=== PATIENT | female | born 1955 | race African-American/Black ===

== ENCOUNTER 2016-10-21 06:22 | Inpatient (IN) | payer BC ==
[~2016-10-21] VITALS: Ht 165.1 cm; Wt 117.4 kg
[~2016-10-21 06:22] MED LIST: PANT40TA3 PO; SCOP1PAT2 T-DERMAL
[2016-10-21 06:25] VITALS: BP 157/88; PULSE 78; RESP 20; TEMP 97.5; O2SAT 99
[2016-10-21] MEDS ORDERED: SODIUM CHLOR 0.9% 1000 ML INJ 1,000 ML IV SCH (07:11)
[2016-10-21] MEDS ORDERED: PANTOPRAZOLE SODIUM 40 MG VIAL IVP ONE (07:15)
[2016-10-21] MEDS ORDERED: HYDROmorphone HCL PF 1 MG/ML VIAL IVS ONE (07:15)
[2016-10-21] MEDS ORDERED: ONDANSETRON HCL 4 MG/2 ML VIAL IVP ONE (07:15)
--- NOTE | 2016-10-21 07:26 | PD ---
HPI Chief Complaint: GI Complaint Time Seen by Provider: 06:59 Travel History International Travel<30 days: No Contact w/Intl Traveler<30days: No Traveled to known affect area: No History of Present Illness HPI 61-year-old female complains of abdominal pain with nausea vomiting diarrhea. Patient status post cholecystectomy and laparoscopic Donna-en-Y gastric bypass by Dr. Dumont October 10, 2016. Patient has been doing well postop. Patient started having abdominal pain with nausea vomiting diarrhea 2 days ago. Patient states the pain is severe pain cramping pain and sharp pain started around epigastric area with radiation to the back. Patient denies any fever chills. Patient denies any blood or mucus in the vomitus or stool. Patient denies any urinary or frequency. Patient denies any vaginal discharge or bleeding. On a scale of 1-10 the pain is a 10. PFSH Past Medical History Arthritis: Yes Cancer: No Cardiovascular Problems: No Diabetes: No Diminished Hearing: No Endocrine: No Gastrointestinal Disorders: Yes (reflux) GERD: Yes Genitourinary: No Hepatitis: No Hiatal Hernia: Yes Hypertension: Yes Immune Disorder: No Musculoskeletal: Yes (arthritis) Neurologic: Yes (hx of migraines) Psychiatric: No Reproductive: No Respiratory: No Migraines: Yes Thyroid Disease: No Menopausal: Yes Past Surgical History Abdominal Surgery: Yes (hemorroidectomy, gastric sleeve) AICD: No Cardiac Surgery: No Section: Yes (1979 & 1982) Endocrine Surgery: No Eye Surgery: No Genitourinary Surgery: No Gynecologic Surgery: Yes (x2 hysterectomy) Hysterectomy: Yes Joint Replacement: No Oral Surgery: No Pacemaker: No Thoracic Surgery: Yes (bronchoscopy) Tonsillectomy: Yes Other Surgery: Yes (HEMORRHOIDECTOMY, THROAT BIOPSY) Social History Alcohol Use: No Tobacco Use: No (QUIT 2003) Substance Use: No Allergies-Medications (Allergen,Severity, Reaction): Coded Allergies: Morphine (Verified Allergy, Severe, HIVES, 10/21/16) Percocet (Verified Adverse Reaction, Severe, NAUSEA, 10/21/16) Chlorhexidine (Verified Adverse Reaction, Intermediate, redness and itching, 10/21/16) PATIENT USED 2% CHLORHEXIDINE GLUCONATE CLOTHS TO WASH PRE-OP AND DEVELOPED ITCHING AND REDNESS Reported Meds & Prescriptions Reported Meds & Active Scripts Active Scopolamine Patch 72 HR (Scopolamine) 1 Mg Patch 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 SKIN: Warm and dry. HEAD: Normocephalic. EYES: No scleral icterus. No injection or drainage. NECK: Supple, trachea midline. No JVD or lymphadenopathy. CARDIOVASCULAR: Regular rate and rhythm without murmurs, gallops, or rubs. RESPIRATORY: Breath sounds equal bilaterally. No accessory muscle use. GASTROINTESTINAL: Abdomen soft, mildly distended. Active bowel sounds. Patient has moderate to severe tenderness on palpation epigastric area. No rebound tenderness. No mass. MUSCULOSKELETAL: No cyanosis, or edema. BACK: Nontender without obvious deformity. No CVA tenderness. Neurologic exam normal. Data Data Last Documented VS Vital Signs Date Time Temp Pulse Resp B/P Pulse Ox O2 Delivery O2 Flow Rate FiO2 10/21/16 06:25 97.5 78 20 157/88 99 Room Air Orders Complete Blood Count With Diff (10/21/16 07:11) Comprehensive Metabolic Panel (10/21/16 07:11) Lipase (10/21/16 07:11) Prothrombin Time / Inr (Pt) (10/21/16 07:11) Act Partial Throm Time (Ptt) (10/21/16 07:11) Urinalysis - C+S If Indicated (10/21/16 07:11) Ct Abd/Pel W Iv Contrast(Rout) (10/21/16 07:11) Iv Access Insert/Monitor (10/21/16 07:11) Ecg Monitoring (10/21/16 07:11) Oximetry (10/21/16 07:11) Ondansetron Inj (Zofran Inj) (10/21/16 07:15) Pantoprazole Inj (Protonix Inj) (10/21/16 07:15) Sodium Chlor 0.9% 1000 Ml Inj (Ns 1000 M (10/21/16 07:11) Electrocardiogram (10/21/16 07:11) Chest, Single Ap (10/21/16 07:11) Hydromorphone Pf Inj (Dilaudid Pf Inj) (10/21/16 07:15) Iohexol 350 Inj (Omnipaque 350 Inj) (10/21/16 08:19) Labs Laboratory Tests Test 10/21/16 07:10 White Blood Count 6.0 TH/MM3 Red Blood Count 4.48 MIL/MM3 Hemoglobin 13.6 GM/DL Hematocrit 39.2 % Mean Corpuscular Volume 87.6 FL Mean Corpuscular Hemoglobin 30.3 PG Mean Corpuscular Hemoglobin 34.6 % Concent Red Cell Distribution Width 14.4 % Platelet Count 229 TH/MM3 Mean Platelet Volume 8.6 FL Neutrophils (%) (Auto) 77.9 % Lymphocytes (%) (Auto) 16.1 % Monocytes (%) (Auto) 4.9 % Eosinophils (%) (Auto) 0.6 % Basophils (%) (Auto) 0.5 % Neutrophils # (Auto) 4.7 TH/MM3 Lymphocytes # (Auto) 1.0 TH/MM3 Monocytes # (Auto) 0.3 TH/MM3 Eosinophils # (Auto) 0.0 TH/MM3 Basophils # (Auto) 0.0 TH/MM3 CBC Comment DIFF FINAL Differential Comment Prothrombin Time 11.1 SEC Prothromb Time International 1.0 RATIO Ratio Activated Partial 27.5 SEC Thromboplast Time Sodium Level 141 MEQ/L Potassium Level 3.7 MEQ/L Chloride Level 104 MEQ/L Carbon Dioxide Level 23.4 MEQ/L Anion Gap 14 MEQ/L Blood Urea Nitrogen 9 MG/DL Creatinine 0.58 MG/DL Estimat Glomerular Filtration 128 ML/MIN Rate Random Glucose 99 MG/DL Calcium Level 9.6 MG/DL Total Bilirubin 0.5 MG/DL Aspartate Amino Transf 15 U/L (AST/SGOT) Alanine Aminotransferase 16 U/L (ALT/SGPT) Alkaline Phosphatase 52 U/L Total Protein 7.9 GM/DL Albumin 4.0 GM/DL Lipase 99 U/L MDM Medical Decision Making Medical Screen Exam Complete: Yes Emergency Medical Condition: Yes Interpretation(s) Last Impressions Chest X-Ray 1/9/17 0711 Signed Impressions: Service Date/Time: Friday, October 21, 2016 07:42 - CONCLUSION: Hazy opacity at the right lung base could represent atelectasis or mild air space consolidation. Darci Mcgregor MD Abdomen/Pelvis CT 10/21/16710 Signed Impressions: Service Date/Time: Friday, October 21, 2016 08:13 - CONCLUSION: Postsurgical changes noted along the inner curvature of the stomach with what appears to be a gastrojejunostomy. Dilated proximal small bowel loops with evidence of acute caliber transition at a second set of postsurgical stephanie in the proximal to mid jejunum. Findings a characteristic of a partial proximal small bowel obstruction likely due to adhesions. Status post cholecystectomy. Trace fluid in the pelvis. No other acute abnormalities Prabhu Antoine MD 8:51 AM. CBC within normal limit. WBC 6.0. 77 neutrophil. CMP within normal limit. Differential Diagnosis Differential diagnosis including gastritis, PUD, pancreatitis, colitis, UTI, pyelonephritis, nephrolithiasis, bowel obstruction. Narrative Course 61-year-old female with epigastric abdominal pain, nausea vomiting diarrhea. Status post cholecystectomy 11 days ago. Normal saline solution 1 25 cc an hour. Dilaudid 1 mg IV. Zofran 4 mg IV. Protonix 40 mg IV. NG tube inserted Diagnosis Primary Impression: Small bowel obstruction Admitting Information Admitting Physician Requests: Admit Jos Tapia MD Oct 21, 2016 07:25 Jos Tapia MD Oct 21, 2016 07:25
[2016-10-21 07:33] LABS: AUTOMATED NEUTROPHIL # 4.7 TH/MM3 (1.8-7.7); BASOPHIL % 0.5 % (0.0-2.0); EOSINOPHIL % 0.6 % (0.0-4.0); HEMATOCRIT 39.2 % (35.0-46.0); HEMO FLAGS DIFF FINAL; LYMPH % 16.1 % (9.0-44.0); MEAN CELL VOLUME 87.6 FL (80.0-100.0); MEAN CORPUSCULAR HEMOGLOBIN 30.3 PG (27.0-34.0); MEAN CORPUSCULAR HGB CONC 34.6 % (32.0-36.0); MONO % 4.9 % (0.0-8.0); NEUT % 77.9 % (16.0-70.0); PLATELET COUNT 229 TH/MM3 (150-450); RED BLOOD COUNT 4.48 MIL/MM3 (4.00-5.30); RED CELL DISTRIBUTION WIDTH 14.4 % (11.6-17.2)
[2016-10-21 07:42] LABS: APTT (PATIENT) 27.5 SEC (24.3-30.1); PROTHROMBIN TIME - PATIENT 11.1 SEC (9.8-11.6)
[2016-10-21 07:50] LABS: ALT (GPT) 16 U/L (10-53); ANION GAP 14 MEQ/L (5-15); AST (GOT) 15 U/L (15-37); BICARBONATE 23.4 MEQ/L (21.0-32.0); BLOOD UREA NITROGEN 9 MG/DL (7-18); CHLORIDE 104 MEQ/L (98-107); GLOMERULAR FILTRATION RATE 128 ML/MIN (>89); POTASSIUM 3.7 MEQ/L (3.5-5.1); SODIUM (NA) 141 MEQ/L (136-145)
[2016-10-21 07:53] LABS: ALKALINE PHOSPHATASE 52 U/L (45-117); TOTAL BILIRUBIN ADULT 0.5 MG/DL (0.2-1.0)
--- NOTE | 2016-10-21 08:03 | RADRPT ---
EXAM DATE/TIME: 10/21/2016 07:42 [facility] COMPARISON: No previous studies available for comparison. INDICATIONS : Left upper abdomen pains, radiating into chest. MEDICAL HISTORY : None. SURGICAL HISTORY : None. ENCOUNTER: Initial ACUITY: 2 days PAIN SCORE: 10/10 LOCATION: Left chest FINDINGS: Portable AP view of the chest demonstrates a normal-sized cardiac silhouette. Lungs are mildly underi nflated and in hazy opacity at the right lung base. No effusion or pneumothorax is visualized. Bones and soft tissues demonstrate no acute finding. CONCLUSION: Hazy opacity at the right lung base could represent atelectasis or mild air space consolidation. Darci Mcgregor MD on October 21, 2016 at 8:01 Board Certified Radiologist. This report was verified electronically.
[2016-10-21] MEDS ORDERED: IOHEXOL 350 MG/ML 10 ML VIAL (for RAD DIAG) IV ONE (08:19)
--- NOTE | 2016-10-21 08:39 | RADRPT ---
EXAM DATE/TIME: 10/21/2016 08:13 [facility] COMPARISON: No previous studies available for comparison. INDICATIONS : Patient complains of epigastric pain and vomiting IV CONTRAST: 90 cc Omnipaque 350 (iohexol) IV ORAL CONTRAST: No oral contrast ingested. RADIATION DOSE: 16.03 CTDIvol (mGy) MEDICAL HISTORY : Hypertension. Hernia, hiatal. SURGICAL HISTORY : Hemorrhoidectomy. Hysterectomy. ENCOUNTER: Initial ACUITY: 4 - 6 days PAIN SCALE: 10/10 LOCATION: upper quadrant TECHNIQUE: Volumetric scanning of the abdomen and pelvis was performed. Using automated exposure control and ad justment of the mA and/or kV according to patient size, radiation dose was kept as low as reasonably achievable to obtain optimal diagnostic quality images. FINDINGS: LOWER LUNGS: The visualized lower lungs are clear. LIVER: Homogeneous density without lesion. There is no dilation of the biliary tree. Gallbladder has been r emoved SPLEEN: Normal size without lesion. PANCREAS: Within normal limits. KIDNEYS: Normal in size and shape. There is no mass, stone or hydronephrosis. ADRENAL GLANDS: Within normal limits. VASCULAR: There is no aortic aneurysm. BOWEL/MESENTERY: Postsurgical changes are identified along the gastric wall. There are adjacent dilated small intestin al loops. A transition is identified in the mid left abdomen where a second set of anastomotic suture s are noted. The small intestinal tract this is normal in caliber. Stool and gas are seen in the colo n. There are no extraintestinal fluid collections or evidence of free air. Trace free fluid is identi fied in the pelvis. ABDOMINAL WALL: Within normal limits. RETROPERITONEUM: There is no lymphadenopathy. BLADDER: No wall thickening or mass. REPRODUCTIVE: Within normal limits. INGUINAL: There is no lymphadenopathy or hernia. MUSCULOSKELETAL: Facet arthropathy is noted in lower lumbar spine. CONCLUSION: Postsurgical changes noted along the inner curvature of the stomach with what appears to be a gastroj ejunostomy. Dilated proximal small bowel loops with evidence of acute caliber transition at a second set of posts urgical stephanie in the proximal to mid jejunum. Findings a characteristic of a partial proximal small bowel obstruction likely due to adhesions. Status post cholecystectomy. Trace fluid in the pelvis. No other acute abnormalities Prabhu Antoine MD on October 21, 2016 at 8:29 Board Certified Radiologist. This report was verified electronically.
[2016-10-21 08:50] VITALS: BP 144/85; PULSE 72; RESP 17; O2SAT 96
[2016-10-21] MEDS ORDERED: ONDANSETRON HCL 4 MG/2 ML VIAL IV PUSH ONE (09:07)
[2016-10-21] MEDS ORDERED: PHENYLEPH/NS 1000 MCG/10 ML SYR IV ONE (09:07)
[2016-10-21] MEDS ORDERED: NEOSTIGMINE METHYLSULFATE 10 MG/10 ML VIAL IV PUSH ONE (09:07)
[2016-10-21] MEDS ORDERED: LACTATED RINGER'S 1000 ML INJ 1,000 ML IV ONE (09:07)
[2016-10-21] MEDS ORDERED: ePHEDrine/NS 50 MG/5 ML SYR IV ONE (09:07)
[2016-10-21] MEDS ORDERED: PROPOFOL 200 MG/20 ML AMP IV ONE (09:07)
[2016-10-21] MEDS ORDERED: PIPERACIL-TAZO 3.375 GM PREMIX 50 ML IV ONE (09:15)
[2016-10-21] MEDS ORDERED: ACETAMINOPHEN 325 MG TAB PO PRN (09:15)
[2016-10-21] MEDS ORDERED: SODIUM CHLORIDE 0.9% FLUSH 5 ML FLUSH IVF PRN ×3 (09:15→13:45)
[2016-10-21] MEDS ORDERED: ONDANSETRON HCL 4 MG/2 ML VIAL IV PRN ×2 (09:15→13:45)
[2016-10-21 09:21] VITALS: O2SAT 99
[2016-10-21 09:27] LABS: BACTERIA, URINE OCC /hpf; BLOOD, URINE NEG (NEG); GLUCOSE,URINE NEG (NEG); KETONE, URINE 150 mg/dL (NEG); MUCUS URINE FEW /lpf (OCC); NITRITE,URINE NEG (NEG); PH, URINE 5.5 (5.0-8.5); SQUAMOUS EPITHELIAL CELL URINE 2 /hpf (0-5); URINE COLOR YELLOW (YELLW/STRAW)
[2016-10-21 09:28] LABS: COMMENT (UR) CULT NOT INDICATED; CULTURE IF INDICATED CULT NOT INDICATED
[2016-10-21] MEDS ORDERED: MIDAZOLAM HCL 2 MG/2 ML VIAL ONE (10:41)
--- NOTE | 2016-10-21 11:03 | EKG ---
Date Performed: 10/21/2016 Time Performed: 07:39:10 PTAGE: 61 years EKG: Sinus rhythm NORMAL ECG PREVIOUS TRACING : 01/05/2008 08.16 No significant change from previous tracing noted. DOCTOR: Gigi Delaney Interpretating Date/Time 10/21/2016 11:02:27
[2016-10-21] MEDS ORDERED: BUPIVACAINE/EPINEPHRINE 0.25% 50 ML VIAL INFIL ONE (11:22)
[2016-10-21] MEDS ORDERED: MORPHINE SULFATE 30 MG/30 ML PCA IV SCH (13:45)
[2016-10-21] MEDS ORDERED: diphenhydrAMINE HCL 25 MG CAP PO PRN (13:45)
[2016-10-21] MEDS ORDERED: Post-op Orders (for Pharmacy) MISC XX ONE ×2 (13:45)
[2016-10-21] MEDS ORDERED: NALOXONE HCL 0.4 MG/ML AMP IV PRN (13:45)
[2016-10-21] MEDS ORDERED: PCA - TOTAL MG MORPHINE DELIVERED PER SHIFT SCH (14:00)
[2016-10-21] MEDS ORDERED: DO NOT ADM ANY ANTICOAGULANT DRUGS XX PRN (14:02)
[2016-10-21] MEDS ORDERED: fentaNYL CITRATE 250 MCG/5 ML AMP ONE (14:16)
[2016-10-21] MEDS ORDERED: *HYDROmorphone PF 1 MG VIAL PERIprocedural Use ONLY ONE ×2 (14:28→14:48)
[2016-10-21] MEDS: SODIUM CHLOR 0.9% 1000 ML INJ 1,000 ML IV SCH (16:00)
[2016-10-21] MEDS ORDERED: HYDROmorphone HCL PCA 6 MG/30 ML IV ONE (16:40)
[2016-10-21] MEDS ORDERED: HYDROmorphone HCL PCA 6 MG/30 ML IV SCH (16:45)
[2016-10-21 18:00] VITALS: BP 110/59; PULSE 85; RESP 18; TEMP 97.9; O2SAT 99
[2016-10-21 20:00] VITALS: BP 134/69; PULSE 74; RESP 18; TEMP 96.9; O2SAT 100
[2016-10-21] MEDS ORDERED: SODIUM CHLORIDE 0.9% FLUSH 5 ML FLUSH IVF SCH ×2 (21:00)
[2016-10-21] MEDS: SODIUM CHLORIDE 0.9% FLUSH 5 ML FLUSH IVF SCH (21:00)
[2016-10-21] MEDS: SCOPOLAMINE 1.5 MG PATCH TD SCH (21:37)
[2016-10-21] MEDS: PCA - TOTAL MG DILAUDID DELIVERED PER SHIFT SCH (21:39)
[2016-10-22] VITALS (8 sets, daily range): BP systolic 119–145; BP diastolic 66–78; PULSE 58–78; RESP 17–19; TEMP 97.3–97.9; O2SAT 96–100
[2016-10-22] MEDS: PIPERACIL-TAZO 3.375 GM PREMIX 50 ML IV SCH ×3 (00:19→16:56)
[2016-10-22] MEDS: SODIUM CHLOR 0.9% 1000 ML INJ 1,000 ML IV SCH ×3 (00:19→22:03)
[2016-10-22 05:38] LABS: AUTOMATED NEUTROPHIL # 4.2 TH/MM3 (1.8-7.7); BASOPHIL % 0.2 % (0.0-2.0); EOSINOPHIL % 0.1 % (0.0-4.0); HEMATOCRIT 33.6 % (35.0-46.0); HEMO FLAGS DIFF FINAL; LYMPH % 17.6 % (9.0-44.0); MEAN CELL VOLUME 89.2 FL (80.0-100.0); MEAN CORPUSCULAR HEMOGLOBIN 29.5 PG (27.0-34.0); MEAN CORPUSCULAR HGB CONC 33.1 % (32.0-36.0); MONO % 8.6 % (0.0-8.0); NEUT % 73.5 % (16.0-70.0); PLATELET COUNT 217 TH/MM3 (150-450); RED BLOOD COUNT 3.76 MIL/MM3 (4.00-5.30); RED CELL DISTRIBUTION WIDTH 14.6 % (11.6-17.2); WHITE BLOOD COUNT 5.8 TH/MM3 (4.0-11.0)
[2016-10-22] MEDS: PCA - TOTAL MG DILAUDID DELIVERED PER SHIFT SCH ×3 (05:44→22:00)
[2016-10-22] MEDS: SODIUM CHLORIDE 0.9% FLUSH 5 ML FLUSH IVF SCH ×2 (08:22→21:00)
[2016-10-22] MEDS: ENOXAPARIN SODIUM 40 MG/0.4 ML SYRINGE SQ SCH (11:40)
--- NOTE | 2016-10-22 16:36 | HHI.PR ---
Subjective Subjective Notes pt comfortable pain controlled no flatus Objective Vitals/I&O Vital Signs Date Time Temp Pulse Resp B/P Pulse Ox O2 Delivery O2 Flow Rate FiO2 10/22/16 14:00 22 10/22/16 11:41 97.3 58 121/68 100 10/22/16 08:10 Nasal Cannula 10/22/16 01:59 1.00 10/21/16 09:21 21 Labs Laboratory Tests Test 10/22/16 05:04 White Blood Count 5.8 Red Blood Count 3.76 Hemoglobin 11.1 Hematocrit 33.6 Mean Corpuscular Volume 89.2 Mean Corpuscular Hemoglobin 29.5 Mean Corpuscular Hemoglobin 33.1 Concent Red Cell Distribution Width 14.6 Platelet Count 217 Mean Platelet Volume 8.5 Neutrophils (%) (Auto) 73.5 Lymphocytes (%) (Auto) 17.6 Monocytes (%) (Auto) 8.6 Eosinophils (%) (Auto) 0.1 Basophils (%) (Auto) 0.2 Neutrophils # (Auto) 4.2 Lymphocytes # (Auto) 1.0 Monocytes # (Auto) 0.5 Eosinophils # (Auto) 0.0 Basophils # (Auto) 0.0 CBC Comment DIFF FINAL Differential Comment Abdomen: Post-op tenderness Extremities: Perfused Wound Wound : Wound Location: Abdomen Appearance: Clean & Dry A/P Assessment and Plan S/P Lap SARA for SBO normal post op changes OOB ok for ice chips Osito Dumont MD Oct 22, 2016 16:36
[2016-10-23] VITALS: BP 143/78; PULSE 68; RESP 17; TEMP 97.8; O2SAT 97
[2016-10-23] MEDS: PIPERACIL-TAZO 3.375 GM PREMIX 50 ML IV SCH ×3 (01:20→15:38)
[2016-10-23 04:44] LABS: AUTOMATED NEUTROPHIL # 3.1 TH/MM3 (1.8-7.7); BASOPHIL % 0.4 % (0.0-2.0); EOSINOPHIL # 0.1 TH/MM3 (0-0.4); EOSINOPHIL % 2.3 % (0.0-4.0); HEMATOCRIT 36.4 % (35.0-46.0); HEMO FLAGS DIFF FINAL; LYMPH % 36.9 % (9.0-44.0); LYMPHOCYTE # 2.2 TH/MM3 (1.0-4.8); MEAN CELL VOLUME 89.2 FL (80.0-100.0); MEAN CORPUSCULAR HEMOGLOBIN 29.3 PG (27.0-34.0); MEAN CORPUSCULAR HGB CONC 32.8 % (32.0-36.0); MONO % 10.1 % (0.0-8.0); NEUT % 50.3 % (16.0-70.0); PLATELET COUNT 218 TH/MM3 (150-450); RED BLOOD COUNT 4.08 MIL/MM3 (4.00-5.30); RED CELL DISTRIBUTION WIDTH 14.7 % (11.6-17.2); WHITE BLOOD COUNT 6.1 TH/MM3 (4.0-11.0)
[2016-10-23 05:12] LABS: BICARBONATE 27.4 MEQ/L (21.0-32.0); MAGNESIUM 1.9 MG/DL (1.5-2.5); POTASSIUM 3.7 MEQ/L (3.5-5.1)
[2016-10-23] MEDS: SODIUM CHLOR 0.9% 1000 ML INJ 1,000 ML IV SCH ×2 (05:57→15:39)
[2016-10-23] MEDS: PCA - TOTAL MG DILAUDID DELIVERED PER SHIFT SCH ×3 (06:00→22:00)
[2016-10-23 08:00] VITALS: BP 133/75; PULSE 75; RESP 17; TEMP 97.2; O2SAT 97
[2016-10-23] MEDS: SODIUM CHLORIDE 0.9% FLUSH 5 ML FLUSH IVF SCH ×2 (09:00→21:00)
[2016-10-23] MEDS: ENOXAPARIN SODIUM 40 MG/0.4 ML SYRINGE SQ SCH (13:00)
[2016-10-23 20:00] VITALS: BP 136/78; PULSE 69; RESP 20; TEMP 97.1; O2SAT 100
[2016-10-24] VITALS: BP 139/73; PULSE 65; RESP 20; TEMP 97.4; O2SAT 99
[2016-10-24] MEDS: PIPERACIL-TAZO 3.375 GM PREMIX 50 ML IV SCH ×4 (00:39→23:43)
[2016-10-24] MEDS: SODIUM CHLOR 0.9% 1000 ML INJ 1,000 ML IV SCH ×2 (03:53→08:12)
[2016-10-24 04:00] VITALS: BP 154/74; PULSE 64; RESP 20; TEMP 96.3; O2SAT 95
[2016-10-24] MEDS: PCA - TOTAL MG DILAUDID DELIVERED PER SHIFT SCH (06:00)
[2016-10-24 08:00] VITALS: BP 148/68; PULSE 66; RESP 17; TEMP 97.4; O2SAT 95
[2016-10-24] MEDS: SODIUM CHLORIDE 0.9% FLUSH 5 ML FLUSH IVF SCH ×2 (08:13→21:00)
[2016-10-24 12:00] VITALS: BP 151/72; PULSE 68; RESP 17; TEMP 96.6; O2SAT 95
[2016-10-24] MEDS: ENOXAPARIN SODIUM 40 MG/0.4 ML SYRINGE SQ SCH (13:17)
[2016-10-24] MEDS: SCOPOLAMINE 1.5 MG PATCH TD SCH (13:41)
[2016-10-24] MEDS ORDERED: REMOVE OLD SCOPOLAMINE PATCH T-DERMAL SCH (15:00)
[2016-10-24] MEDS: ACETAMINOPHEN 325MG/HYDROcodone 7.5MG/15ML UDC PO PRN (17:33)
[2016-10-24 20:00] VITALS: BP 146/70; PULSE 66; RESP 20; TEMP 97.2; O2SAT 99
[2016-10-25] VITALS: BP 145/74; PULSE 65; RESP 20; TEMP 97.1; O2SAT 97
[2016-10-25 05:03] LABS: AUTOMATED NEUTROPHIL # 2.4 TH/MM3 (1.8-7.7); BASOPHIL % 0.6 % (0.0-2.0); EOSINOPHIL # 0.2 TH/MM3 (0-0.4); EOSINOPHIL % 4.4 % (0.0-4.0); HEMATOCRIT 32.5 % (35.0-46.0); HEMO FLAGS DIFF FINAL; LYMPH % 38.2 % (9.0-44.0); LYMPHOCYTE # 1.9 TH/MM3 (1.0-4.8); MEAN CELL VOLUME 89.1 FL (80.0-100.0); MEAN CORPUSCULAR HEMOGLOBIN 29.7 PG (27.0-34.0); MEAN CORPUSCULAR HGB CONC 33.3 % (32.0-36.0); MONO % 8.2 % (0.0-8.0); NEUT % 48.6 % (16.0-70.0); PLATELET COUNT 198 TH/MM3 (150-450); RED BLOOD COUNT 3.64 MIL/MM3 (4.00-5.30); RED CELL DISTRIBUTION WIDTH 14.6 % (11.6-17.2)
[2016-10-25 05:19] LABS: BICARBONATE 28.1 MEQ/L (21.0-32.0); MAGNESIUM 1.8 MG/DL (1.5-2.5); POTASSIUM 3.4 MEQ/L (3.5-5.1)
[2016-10-25 08:00] VITALS: BP 146/81; PULSE 67; RESP 16; TEMP 97.7; O2SAT 98
[2016-10-25] MEDS: SODIUM CHLOR 0.9% 1000 ML INJ 1,000 ML IV SCH (08:54)
[2016-10-25] MEDS: PIPERACIL-TAZO 3.375 GM PREMIX 50 ML IV SCH ×3 (08:54→23:59)
[2016-10-25] MEDS: PANTOPRAZOLE SODIUM 40 MG VIAL IV PUSH SCH (08:55)
[2016-10-25] MEDS: SODIUM CHLORIDE 0.9% FLUSH 5 ML FLUSH IVF SCH ×2 (08:55→20:11)
[2016-10-25] MEDS: POTASSIUM CHLOR 20 MEQ PREMIX 100 ML IV SCH ×2 (10:00→17:32)
[2016-10-25 12:00] VITALS: BP 150/89; PULSE 68; RESP 17; TEMP 98; O2SAT 99
[2016-10-25] MEDS: ENOXAPARIN SODIUM 40 MG/0.4 ML SYRINGE SQ SCH (13:00)
[2016-10-25 15:48] VITALS: BP 148/88; PULSE 62; RESP 17; TEMP 97.7; O2SAT 100
--- NOTE | 2016-10-25 17:22 | HHI.PR ---
Subjective Subjective Notes pt comfortable pos flatus BM yesterday Objective Vitals/I&O Vital Signs Date Time Temp Pulse Resp B/P Pulse Ox O2 Delivery O2 Flow Rate FiO2 10/25/16 15:48 97.7 62 17 148/88 100 10/22/16 20:38 21 10/22/16 08:10 Nasal Cannula 10/22/16 01:59 1.00 Labs Laboratory Tests Test 10/25/16 04:26 White Blood Count 5.0 Red Blood Count 3.64 Hemoglobin 10.8 Hematocrit 32.5 Mean Corpuscular Volume 89.1 Mean Corpuscular Hemoglobin 29.7 Mean Corpuscular Hemoglobin 33.3 Concent Red Cell Distribution Width 14.6 Platelet Count 198 Mean Platelet Volume 8.9 Neutrophils (%) (Auto) 48.6 Lymphocytes (%) (Auto) 38.2 Monocytes (%) (Auto) 8.2 Eosinophils (%) (Auto) 4.4 Basophils (%) (Auto) 0.6 Neutrophils # (Auto) 2.4 Lymphocytes # (Auto) 1.9 Monocytes # (Auto) 0.4 Eosinophils # (Auto) 0.2 Basophils # (Auto) 0.0 CBC Comment DIFF FINAL Differential Comment Sodium Level 146 Potassium Level 3.4 Chloride Level 109 Carbon Dioxide Level 28.1 Anion Gap 9 Blood Urea Nitrogen 3 Creatinine 0.44 Estimat Glomerular Filtration 176 Rate Random Glucose 78 Calcium Level 8.6 Magnesium Level 1.8 Abdomen: Post-op tenderness Extremities: Perfused Wound Wound : Wound Location: Abdomen Appearance: Clean & Dry A/P Assessment and Plan S/P Lap SARA for SBO soft diet no bread potatoes pasta replace K if josé manuel diet d/c in am Osito Dumont MD Oct 25, 2016 17:22
[2016-10-25] MEDS: ACETAMINOPHEN 325MG/HYDROcodone 7.5MG/15ML UDC PO PRN (18:18)
[2016-10-25 20:00] VITALS: BP 150/77; PULSE 66; RESP 20; TEMP 97.6; O2SAT 97
[2016-10-26] VITALS: BP 123/69; PULSE 70; RESP 20; TEMP 97.4; O2SAT 96
[2016-10-26] MEDS: ACETAMINOPHEN 325MG/HYDROcodone 7.5MG/15ML UDC PO PRN (00:07)
[2016-10-26] MEDS: SODIUM CHLOR 0.9% 1000 ML INJ 1,000 ML IV SCH (05:00)
[2016-10-26 08:00] VITALS: BP 128/65; PULSE 70; RESP 18; TEMP 96.9; O2SAT 97
[2016-10-26] MEDS: PIPERACIL-TAZO 3.375 GM PREMIX 50 ML IV SCH (09:05)
[2016-10-26] MEDS: PANTOPRAZOLE SODIUM 40 MG VIAL IV PUSH SCH (09:06)
[2016-10-26] MEDS: SODIUM CHLORIDE 0.9% FLUSH 5 ML FLUSH IVF SCH (09:06)
[2016-10-26 12:00] VITALS: BP 142/78; PULSE 64; RESP 17; TEMP 98.2; O2SAT 99
[2016-10-26] MEDS: ENOXAPARIN SODIUM 40 MG/0.4 ML SYRINGE SQ SCH (12:51)
--- NOTE | 2016-10-26 15:30 | HHI.PR ---
Subjective Subjective Notes pt comfortable no cp no sob pos flatus Objective Vitals/I&O Vital Signs Date Time Temp Pulse Resp B/P Pulse Ox O2 Delivery O2 Flow Rate FiO2 10/26/16 12:00 98.2 64 17 142/78 99 10/22/16 20:38 21 10/22/16 08:10 Nasal Cannula Cardiovascular: Regular Abdomen: Post-op tenderness Extremities: Perfused Wound Wound : Wound Location: Abdomen Appearance: Clean & Dry A/P Assessment and Plan S/P Lap SARA for SBO if josé manuel diet d/c home Osito Dumont MD Oct 26, 2016 15:30
[2016-10-26] MEDS ORDERED: HYDR1ELX PO (15:31)
--- NOTE | 2016-10-27 17:05 | MH ---
cc: AFSANEH LEAHY DATE OF ADMISSION: 10/21/2016 REASON FOR ADMISSION: Bowel obstruction. HISTORY OF PRESENT ILLNESS: This is 61-year-old patient who underwent Donna-en-Y gastric bypass on October 10, 2016. She doing well until three days prior to presentation when she began experiencing abdominal pain and inability to tolerate meals. As this persisted, she presented to the emergency room where a CT scan revealed findings concerning for bowel obstruction. The patient denies fevers or chills. She states she is passing a small amount of gas and has had diarrhea. PAST MEDICAL HISTORY: Her medical history significant for above as well as: 1. Migraines. 2. Gastroesophageal reflux. 3. Osteoarthritis. PAST SURGICAL HISTORY: Significant for above as well as: 1. Hysterectomy. 2. section. 3. Cholecystectomy. MEDICATIONS: Medications at home that include: Scopolamine and pantoprazole. SOCIAL HISTORY: She does not smoke or drink alcohol. ALLERGIES: 1. MORPHINE. 2. PERCOCET. 3. CHLORHEXIDINE. FAMILY HISTORY: Noncontributory. REVIEW OF SYSTEMS: Review of systems significant for above. All other 10-point review negative. PHYSICAL EXAMINATION: GENERAL: On exam the patient is laying on a stretcher in no acute distress. HEAD, EYES, EARS, NOSE, THROAT: Pupils are equal and reactive. NECK: Trachea is midline without JVD. LUNGS: Respirations clear. CARDIOVASCULAR: Regular. GASTROINTESTINAL: Soft, positive tenderness, moderate distension. MUSCULOSKELETAL: No deformities. NEUROLOGICAL: Nonfocal. LABORATORY STUDIES: White count 6, neutrophils of 78. ASSESSMENT: This is a patient with a bowel obstruction. PLAN: The plan is to take her to the operating room for laparoscopy with lysis of adhesions and possible bowel resection. Risks and benefits explained to the patient, technical aspects explained as well as nery- and postoperative course. The patient verbalized understanding. Consent was obtained. MD PHYLLIS Hoover/GUNNAR /4:19 PM /4:59 PM
--- NOTE | 2016-10-30 17:57 | MP ---
cc: AFSANEH DUMONT DATE OF SURGERY: 10/21/2016 DATE OF : 1955 PREOPERATIVE DIAGNOSIS Bowel obstruction. POSTOPERATIVE DIAGNOSIS Bowel obstruction. PROCEDURE Laparoscopic lysis of adhesions. SURGEON Afsaneh Dumont MD ANESTHESIA General endotracheal anesthesia. ESTIMATED BLOOD LOSS Scant. FINDINGS The patient was noted to have dense adhesions just proximal to her jejunojejunostomy and dilation of her Donna limb proximal to this. Distal to her jejunojejunostomy, the patient had adhesions in her left lower quadrant. She also had adhesions on the small bowel further distally to the abdominal wall and the pelvis. SPECIMENS None. COMPLICATIONS None. OPERATION The patient was brought to the operating room and placed on the operating table in supine position. Bilateral sequential inflation device placed on lower extremities. General anesthesia instituted. Araujo catheter placed. Antibiotics initiated. The abdomen was prepped and draped sterilely. The periumbilical region anesthetized with 0.25% percent Marcaine with epinephrine. A skin incision was made, a 5 mm OptiView port placed under direct vision and pneumoperitoneum created. Under direct vision a 5 mm left upper quadrant, a 5 mm right upper quadrant and a 12 mm left upper quadrant port was placed. Prior to placement of all ports, the skin and peritoneum anesthetized with 0.25% percent Marcaine with epinephrine. The abdominal cavity was inspected. Findings as above. Attention first focused at the jejunostomy. The dense adhesions kinked in the small bowel in this region were using blunt and sharp dissection. Serosal entry in the bowel in this region were made during the dissection, these were closed with 3-0 Vicryl sutures. Once the bowel was freed in this region, the proximal Donna limb was then plicated to the biliopancreatic limb with 2-0 silk sutures. Attention turned to the distal bowel just distal to the jejunojejunostomy and this bowel was sharply , care taken not to injure the small bowel during this dissection. It was decided to leave the deep pelvic adhesions intact for fear of risk of injury to the bowel. At this point, contents appeared to be passing through the jejunojejunostomy, the operation was terminated. Hemostasis was assured first. CO2 was released. All ports removed. All skin incisions closed with 4-0 Monocryl. The abdominal wall was cleaned and a sterile dressing placed. The patient was awakened and taken to the Recovery Room. MD PHYLLIS Hoover/TRICE /4:12 PM /5:22 PM
--- NOTE | 2016-11-14 12:34 | HHI.DS ---
Discharge Summary Admission Date Oct 21, 2016 at 09:06 Discharge Date: Oct 26, 2016 Admitting Diagnosis small bowel obstruction Brief History 61 year old female s/p Donna N Y procedure now with SBO. PE at Discharge Alert and awake Cardio: RRR Resp: CTAB Abd: incision c/d/i; post op tenderness Hospital Course 61 year old female S/P Lap SARA for SBO. The patient's pain was controlled. Her diet was advanced and she was karuna to tolerate it prior to DC. The patient was able to mobilize. The patient will follow up in the office. This DC summary was written by Analilia CRUZ acting as scribe for Philip Paul MD Pt Condition on Discharge: Good Discharge Disposition: Discharge Home Discharge Instructions DIET: Follow Instructions for: Soft Diet Activities you can perform: Shower Only-No Bath Quin Gonzalez Nov 14, 2016 12:33
== END 2016-10-26 16:53 | disposition home or self-care (01) | DRG 337 ==
LOC: NEPE 06:22 → NEDA 09:06 → N07B 17:59
PROVIDERS: ADMIT Surgery; ATTEND Surgery
PROC: 0DNA4ZZ Release Jejunum, Percutaneous Endoscopic Approach (ICD-10-PCS; principal; 2016-10-21 10:46)
DX: K56.5 Intestinal adhesions [bands] with obstruction (postinfection) (principal); I10 Essential (primary) hypertension; K21.9 Gastro-esophageal reflux disease without esophagitis; M19.90 Unspecified osteoarthritis, unspecified site; Z87.891 Personal history of nicotine dependence; Z88.5 Allergy status to narcotic agent; Z98.84 Bariatric surgery status
CPT/HCPCS: 71010; 74177; 76937; 80048; 80053; 81001; 83690; 83735; 85025; 85610; 85730; 93005; 94150; 96361; 96374; 96375; C9113; J1170; J1650; J2250; J2370; J2405; J2543; J2710; J3010; J3480; J7030; J7120; Q9967

== ENCOUNTER 2016-11-17 12:07 | Emergency (ER) | payer BC ==
[~2016-11-17] VITALS: Ht 165.1 cm; Wt 104.1 kg
[~2016-11-17 12:07] MED LIST changes: +HYDR1ELX PO
[2016-11-17 12:10] VITALS: BP 148/85; PULSE 89; RESP 24; TEMP 97.7; O2SAT 100
[2016-11-17] MEDS ORDERED: SODIUM CHLOR 0.9% 1000 ML INJ 1,000 ML IV SCH (12:27)
[2016-11-17] MEDS ORDERED: FAMOTIDINE 20 MG/2 ML VIAL IV PUSH ONE (12:30)
[2016-11-17] MEDS ORDERED: ONDANSETRON HCL 4 MG/2 ML VIAL IVP ONE (12:30)
[2016-11-17] MEDS ORDERED: SODIUM CHLORIDE 0.9% FLUSH 5 ML FLUSH IVF PRN (12:30)
[2016-11-17] MEDS ORDERED: DIATRIZOATE MEGLUM/DIATRIZOATE SOD 9 ML CUP ONE (12:42)
--- NOTE | 2016-11-17 13:07 | PD ---
HPI Chief Complaint: GI Complaint Time Seen by Provider: 12:17 Travel History International Travel<30 days: No Contact w/Intl Traveler<30days: No Traveled to known affect area: No History of Present Illness HPI Patient is a 61-year-old female who presents to emergency room with complaints of nausea and vomiting since last night. Patient reports that she took a potassium pill last night, reports that after she ingested medication, she became nauseous and began vomiting. She reports that she has not been able to stop vomiting since last night. Patient denies any diarrhea or constipation. Patient denies any chest pain or shortness of breath. Patient reports that she is uncomfortable and cannot stop dry heaving. Reports that she was recently admitted to the hospital as she had a cholecystectomy followed by a small bowel obstruction. Reports that "I was just discharged from here." Denies fever/ chills. Denies any other c/o. PFSH Past Medical History Arthritis: Yes Cancer: No Cardiovascular Problems: No Diabetes: No Diminished Hearing: No Endocrine: No Gastrointestinal Disorders: Yes (reflux) GERD: Yes Genitourinary: No Hepatitis: No Hiatal Hernia: Yes Hypertension: Yes Immune Disorder: No Musculoskeletal: Yes (arthritis) Neurologic: Yes (hx of migraines) Psychiatric: No Reproductive: No Respiratory: No Migraines: Yes Thyroid Disease: No ?: Not Menopausal: Yes Past Surgical History Abdominal Surgery: Yes (hemorroidectomy, gastric sleeve) AICD: No Cardiac Surgery: No Section: Yes (1979 & 1982) Cholecystectomy: Yes Endocrine Surgery: No Eye Surgery: No Genitourinary Surgery: No Gynecologic Surgery: Yes (x2 hysterectomy) Hysterectomy: Yes Joint Replacement: No Oral Surgery: No Pacemaker: No Thoracic Surgery: Yes (bronchoscopy) Tonsillectomy: Yes Other Surgery: Yes (HEMORRHOIDECTOMY, THROAT BIOPSY) Social History Alcohol Use: No Tobacco Use: No (QUIT 2003) Substance Use: No Allergies-Medications (Allergen,Severity, Reaction): Coded Allergies: Morphine (Verified Allergy, Severe, HIVES, 11/17/16) Percocet (Verified Adverse Reaction, Severe, NAUSEA, 11/17/16) Chlorhexidine (Verified Adverse Reaction, Intermediate, redness and itching, 11/17/16) PATIENT USED 2% CHLORHEXIDINE GLUCONATE CLOTHS TO WASH PRE-OP AND DEVELOPED ITCHING AND REDNESS Reported Meds & Prescriptions Reported Meds & Active Scripts Active Zofran Odt (Ondansetron Odt) 4 Mg Tab 4 Mg SL Q6HR PRN Reported Pantoprazole (Pantoprazole Sodium) 40 Mg Tab 40 Mg PO DAILY Review of Systems General / Constitutional: No: Fever Eyes: No: Visual changes HENT: No: Headaches Cardiovascular: Positive: Diaphoresis, No: Chest Pain or Discomfort Respiratory: No: Shortness of Breath Gastrointestinal: Positive: Nausea, Vomiting, Abdominal Pain Genitourinary: No: Dysuria Musculoskeletal: No: Pain Skin: No Rash Neurologic: No: Weakness Psychiatric: No: Depression Endocrine: No: Polydipsia Hematologic/Lymphatic: No: Easy Bruising Physical Exam Narrative GENERAL: mild distress SKIN: Warm and dry. HEAD: Atraumatic. Normocephalic. EYES: Pupils equal and round. No scleral icterus. No injection or drainage. ENT: No nasal bleeding or discharge. Mucous membranes pink and moist. NECK: Trachea midline. No JVD. CARDIOVASCULAR: Regular rate and rhythm. No murmur appreciated. RESPIRATORY: No accessory muscle use. Clear to auscultation. Breath sounds equal bilaterally. GASTROINTESTINAL: Abdomen soft, tenderness to upper abdomen, no rebound or guarding on exam MUSCULOSKELETAL: No obvious deformities. No clubbing. No cyanosis. No edema. NEUROLOGICAL: Awake and alert. No obvious cranial nerve deficits. Motor grossly within normal limits. Normal speech. PSYCHIATRIC: Appropriate mood and affect; insight and judgment normal. Data Data Last Documented VS Vital Signs Date Time Temp Pulse Resp B/P Pulse Ox O2 Delivery O2 Flow Rate FiO2 11/17/16 12:10 97.7 89 24 148/85 100 Orders Complete Blood Count With Diff (11/17/16 12:27) Comprehensive Metabolic Panel (11/17/16 12:27) Lipase (11/17/16 12:27) Prothrombin Time / Inr (Pt) (11/17/16 12:27) Act Partial Throm Time (Ptt) (11/17/16 12:27) Urinalysis - C+S If Indicated (11/17/16 12:27) Ct Abd/Pel W Iv Contrast(Rout) (11/17/16 12:27) Iv Access Insert/Monitor (11/17/16 12:27) Ecg Monitoring (11/17/16 12:27) Oximetry (11/17/16 12:27) Ondansetron Inj (Zofran Inj) (11/17/16 12:30) Sodium Chlor 0.9% 1000 Ml Inj (Ns 1000 M (11/17/16 12:27) Sodium Chloride 0.9% Flush (Ns Flush) (11/17/16 12:30) Electrocardiogram (11/17/16 12:27) Chest, Single Ap (11/17/16 12:27) B-Type Natriuretic Peptide (11/17/16 12:27) Ckmb (Isoenzyme) Profile (11/17/16 12:27) Troponin I (11/17/16 12:27) Famotidine Inj (Pepcid Inj) (11/17/16 12:30) Oral Contrast - Adult (11/17/16 12:34) Diatrizoate Liq ( Gastroview Liq) (11/17/16 12:42) Potassium Cl 40 Meq/30 Ml Liq (Kcl 40 Me (11/17/16 14:15) Potassium Phosphate Inj (Potassium Phosp (11/17/16 14:15) Potassium Chlor 20 Meq Premix (Kcl 20 Me (11/17/16 14:15) Iohexol 350 Inj (Omnipaque 350 Inj) (11/17/16 14:48) Labs Laboratory Tests Test 11/17/16 11/17/16 12:55 14:32 White Blood Count 4.0 TH/MM3 Red Blood Count 4.36 MIL/MM3 Hemoglobin 12.9 GM/DL Hematocrit 38.5 % Mean Corpuscular Volume 88.2 FL Mean Corpuscular Hemoglobin 29.5 PG Mean Corpuscular Hemoglobin 33.5 % Concent Red Cell Distribution Width 15.2 % Platelet Count 160 TH/MM3 Mean Platelet Volume 9.9 FL Neutrophils (%) (Auto) 29.6 % Lymphocytes (%) (Auto) 59.5 % Monocytes (%) (Auto) 9.3 % Eosinophils (%) (Auto) 1.2 % Basophils (%) (Auto) 0.4 % Neutrophils # (Auto) 1.2 TH/MM3 Lymphocytes # (Auto) 2.4 TH/MM3 Monocytes # (Auto) 0.4 TH/MM3 Eosinophils # (Auto) 0.0 TH/MM3 Basophils # (Auto) 0.0 TH/MM3 CBC Comment DIFF FINAL Differential Comment Prothrombin Time 11.2 SEC Prothromb Time International 1.0 RATIO Ratio Activated Partial 26.1 SEC Thromboplast Time Sodium Level 146 MEQ/L Potassium Level 2.8 MEQ/L Chloride Level 109 MEQ/L Carbon Dioxide Level 25.6 MEQ/L Anion Gap 11 MEQ/L Blood Urea Nitrogen 8 MG/DL Creatinine 0.60 MG/DL Estimat Glomerular Filtration 123 ML/MIN Rate Random Glucose 91 MG/DL Calcium Level 9.0 MG/DL Total Bilirubin 1.0 MG/DL Aspartate Amino Transf 13 U/L (AST/SGOT) Alanine Aminotransferase 14 U/L (ALT/SGPT) Alkaline Phosphatase 62 U/L Total Creatine Kinase 90 U/L Troponin I LESS THAN 0.02 NG/ML B-Type Natriuretic Peptide 28 PG/ML Total Protein 7.5 GM/DL Albumin 4.1 GM/DL Lipase 149 U/L Urine Color YELLOW Urine Turbidity CLEAR Urine pH 6.0 Urine Specific [place] 1.022 Urine Protein NEG mg/dL Urine Glucose (UA) NEG mg/dL Urine Ketones 80 mg/dL Urine Occult Blood NEG Urine Nitrite NEG Urine Bilirubin NEG Urine Urobilinogen LESS THAN 2.0 MG/DL Urine Leukocyte Esterase NEG Urine WBC 3 /hpf Urine Squamous Epithelial 2 /hpf Cells Urine Mucus FEW /lpf Microscopic Urinalysis Comment CULT NOT INDICATED MDM Medical Decision Making Medical Screen Exam Complete: Yes Emergency Medical Condition: Yes Interpretation(s) EKG at 1237: Normal sinus rhythm at 88 bpm, QT/QTC 364/409, no acute ST or T- wave changes Vital Signs Date Time Temp Pulse Resp B/P Pulse Ox O2 Delivery O2 Flow Rate FiO2 11/17/16 12:10 97.7 89 24 148/85 100 Differential Diagnosis illeus, SBO, ACS, electrolyte abnormality, viral syndrome, gastroenteritis, gastritis Narrative Course Patient is a 61 year old female who presents to ER with c/o of intractable nausea and vomiting. Patient reports that her symptoms began last night after she took a potassium tab last night. Reports that she has been feeling nauseous and has had multiple episodes of vomiting overnight. Reports epigastric discomfort with no chest pain. Patient with no fever/chills. Reports that she was recently discharged from the hospital after she was admitted for small bowel obstruction. Patient reports that her surgeon is Dr. Paul. EKG ordered as concern for atypical cp as she was diaphoretic with n/v with epigastric pain on initial evaluation. EKG: NSR at 88bpm, no acute st or t wave changes. Labs as well as ct abdomen and pelvis ordered for evaluation of possible obstruction. IV fluids as well as antiemetics ordered for patient CBC & BMP Diagram 11/17/16 12:55 Last Impressions Chest X-Ray 11/17/16 1227 Signed Impressions: Service Date/Time: Thursday, November 17, 2016 12:49 - CONCLUSION: Mild cardiomegaly and increased pulmonary vascularity.. Kiran Carvajal MD Abdomen/Pelvis CT 11/17/16 1227 Signed Impressions: Service Date/Time: Thursday, November 17, 2016 14:32 - CONCLUSION: 1. No acute inflammatory process. 2. Terminal ileum is slightly slightly dilated of uncertain clinical significance. 3. Post surgical changes. Kiran Carvajal MD Patient re-evaluated, patient feeling much better. abdomen is soft, nt/nd, no peritoneals signs. Patient eating crackers and tolerating fluids. I reviewed all labs and studies with patient in detail. Copy of labs and studies given to patient. Patient will follow up with her pcp and surgeon and will return to ER as needed. Diagnosis Primary Impression: Nausea & vomiting Qualified Code: R11.2 - Non-intractable vomiting with nausea, unspecified vomiting type Additional Impressions: Abdominal pain Qualified Code: R10.10 - Pain of upper abdomen Hypokalemia Patient Instructions: General Instructions Additional Instructions: Please provide patient with a copy of her lab work and radiology report at discharge Please return to emergency room as needed Please follow-up with your primary care doctor in 1-2 days Return to the emergency room if symptoms return Scripts Ondansetron Odt (Zofran Odt)4 Mg Tab4 Mg SL Q6HR PRN (Nausea/Vomiting) #30 TAB Ref 0 Prov:Devora Begum DO 11/17/16 Disposition: 01 DISCHARGE HOME Condition: Stable Devora Begum DO Nov 17, 2016 13:07
--- NOTE | 2016-11-17 13:13 | RADRPT ---
EXAM DATE/TIME: 11/17/2016 12:49 [facility] COMPARISON: CHEST SINGLE AP, October 21, 2016, 7:42. INDICATIONS : Vomitting. MEDICAL HISTORY : None. SURGICAL HISTORY : None. ENCOUNTER: Initial ACUITY: 1 day PAIN SCORE: 4/10 LOCATION: Bilateral lower chest FINDINGS: A single view of the chest demonstrates the lungs to be symmetrically aerated without evidence of mas s, infiltrate or effusion. Mild cardiomegaly. Increased pulmonary vascularity. The cardiomediastinal contours are unremarkable. Osseous structures are intact. CONCLUSION: Mild cardiomegaly and increased pulmonary vascularity.. Kiran Carvajal MD on November 17, 2016 at 13:11 Board Certified Radiologist. This report was verified electronically.
[2016-11-17 13:20] LABS: AUTOMATED NEUTROPHIL # 1.2 TH/MM3 (1.8-7.7); BASOPHIL % 0.4 % (0.0-2.0); EOSINOPHIL % 1.2 % (0.0-4.0); HEMATOCRIT 38.5 % (35.0-46.0); HEMO FLAGS DIFF FINAL; LYMPH % 59.5 % (9.0-44.0); LYMPHOCYTE # 2.4 TH/MM3 (1.0-4.8); MEAN CELL VOLUME 88.2 FL (80.0-100.0); MEAN CORPUSCULAR HEMOGLOBIN 29.5 PG (27.0-34.0); MEAN CORPUSCULAR HGB CONC 33.5 % (32.0-36.0); MONO % 9.3 % (0.0-8.0); NEUT % 29.6 % (16.0-70.0); PLATELET COUNT 160 TH/MM3 (150-450); RED BLOOD COUNT 4.36 MIL/MM3 (4.00-5.30); RED CELL DISTRIBUTION WIDTH 15.2 % (11.6-17.2)
[2016-11-17 13:28] LABS: APTT (PATIENT) 26.1 SEC (24.3-30.1); PROTHROMBIN TIME - PATIENT 11.2 SEC (9.8-11.6)
[2016-11-17 13:54] LABS: ALKALINE PHOSPHATASE 62 U/L (45-117); ALT (GPT) 14 U/L (10-53); ANION GAP 11 MEQ/L (5-15); AST (GOT) 13 U/L (15-37); BICARBONATE 25.6 MEQ/L (21.0-32.0); BLOOD UREA NITROGEN 8 MG/DL (7-18); CHLORIDE 109 MEQ/L (98-107); GLOMERULAR FILTRATION RATE 123 ML/MIN (>89); SODIUM (NA) 146 MEQ/L (136-145)
[2016-11-17 13:55] LABS: CREATINE KINASE 90 U/L (26-192)
[2016-11-17 14:03] LABS: POTASSIUM 2.8 MEQ/L (3.5-5.1)
[2016-11-17] MEDS ORDERED: POTASSIUM PHOSPHATE INJ 15 MMOL in SODIUM CHLORIDE 0.9% INJ 150 ML IV ONE (14:15)
[2016-11-17] MEDS ORDERED: POTASSIUM CL 40 MEQ/30 ML LIQ UDC PO ONE (14:15)
[2016-11-17] MEDS ORDERED: POTASSIUM CHLOR 20 MEQ PREMIX 100 ML IV ONE (14:15)
[2016-11-17] MEDS ORDERED: IOHEXOL 350 MG/ML 10 ML VIAL (for RAD DIAG) IV ONE (14:48)
--- NOTE | 2016-11-17 14:57 | RADRPT ---
EXAM DATE/TIME: 11/17/2016 14:32 [facility] COMPARISON: CT ABDOMEN & PELVIS W CONTRAST, October 21, 2016, 8:13. INDICATIONS : Abdominal pain with vomiting. IV CONTRAST: 90 cc Omnipaque 350 (iohexol) IV ORAL CONTRAST: Prescribed oral contrast ingested. RADIATION DOSE: 14.76 CTDIvol (mGy) MEDICAL HISTORY : Hypertension. SURGICAL HISTORY : Cholecystectomy. Hysterectomy. ENCOUNTER: Initial ACUITY: 2 days PAIN SCALE: 0/10 LOCATION: abdomen/pelvis TECHNIQUE: Volumetric scanning of the abdomen and pelvis was performed. Using automated exposure control and ad justment of the mA and/or kV according to patient size, radiation dose was kept as low as reasonably achievable to obtain optimal diagnostic quality images. FINDINGS: LOWER LUNGS: The visualized lower lungs are clear. LIVER: Homogeneous density without lesion. There is no dilation of the biliary tree. Cholecystectomy. SPLEEN: Normal size without lesion. PANCREAS: Within normal limits. KIDNEYS: Normal in size and shape. There is no mass, stone or hydronephrosis. ADRENAL GLANDS: Within normal limits. VASCULAR: There is no aortic aneurysm. BOWEL/MESENTERY: No inflammatory changes. No bowel obstruction. Mild dilatation of the terminal ileum on certain etiol ogy. Normal appendix. Anastomotic sutures in the left abdomen. Surgical sutures in the stomach.. The re is no free intraperitoneal air or fluid. ABDOMINAL WALL: Within normal limits. RETROPERITONEUM: There is no lymphadenopathy. BLADDER: No wall thickening or mass. REPRODUCTIVE: Status post hysterectomy. INGUINAL: There is no lymphadenopathy or hernia. MUSCULOSKELETAL: Within normal limits for patient age. CONCLUSION: 1. No acute inflammatory process. 2. Terminal ileum is slightly slightly dilated of uncertain clinical significance. 3. Post surgical changes. Kiran Carvajal MD on November 17, 2016 at 14:52 Board Certified Radiologist. This report was verified electronically.
[2016-11-17 15:01] LABS: BLOOD, URINE NEG (NEG); COMMENT (UR) CULT NOT INDICATED; CULTURE IF INDICATED CULT NOT INDICATED; GLUCOSE,URINE NEG (NEG); KETONE, URINE 80 mg/dL (NEG); MUCUS URINE FEW /lpf (OCC); NITRITE,URINE NEG (NEG); SQUAMOUS EPITHELIAL CELL URINE 2 /hpf (0-5); URINE COLOR YELLOW (YELLW/STRAW)
[2016-11-17] MEDS ORDERED: ZOFR4TAB3 SL (15:18)
[2016-11-17 18:00] VITALS: BP 146/80
--- NOTE | 2016-11-18 11:53 | EKG ---
Date Performed: 11/17/2016 Time Performed: 12:37:33 PTAGE: 61 years EKG: Sinus rhythm NORMAL ECG PREVIOUS TRACING : 10/21/2016 07.39 DOCTOR: Trae Garcia Interpretating Date/Time 11/18/2016 11:47:22
== END 2016-11-17 19:14 | disposition home or self-care (01) ==
LOC: NEPE 12:07
DX: E87.6 Hypokalemia (principal); I10 Essential (primary) hypertension
CPT/HCPCS: 71010; 74177; 80053; 81001; 82550; 83690; 83880; 84484; 85025; 85610; 85730; 93005; 96361; 96365; 96366; 96375; 99284; J2405; J3480; J7030; Q9963; Q9967

== ENCOUNTER 2017-03-05 20:33 | Emergency (ER) | payer BC ==
[~2017-03-05] VITALS: Ht 165.1 cm; Wt 100.0 kg
[~2017-03-05 20:33] MED LIST changes: -HYDR1ELX PO; -SCOP1PAT2 T-DERMAL; +ZOFR4TAB3 SL
[2017-03-05 21:08] VITALS: BP 138/87; PULSE 68; RESP 15; TEMP 98.2; O2SAT 99
--- NOTE | 2017-03-05 21:23 | PD ---
HPI Chief Complaint: Fall Time Seen by Provider: 21:17 Travel History International Travel<30 days: No Contact w/Intl Traveler<30days: No Traveled to known affect area: No History of Present Illness HPI 61-year-old Afro-[place] female presents the emergency department status post fall 4 days ago in her mother's home. Patient is not exactly sure how she fell but she said felt to the left side breaking her left hip and buttock, and left knee on the corner of a wall. Patient denies pain in the anterior groin and left upper lateral hip. Patient is been taking there pain and body, but feels this is not improving in one to get it checked out. Denies weakness, or numbness. PFSH Past Medical History Arthritis: Yes Cancer: No Cardiovascular Problems: No Diabetes: No Diminished Hearing: No Endocrine: No Gastrointestinal Disorders: Yes (reflux) GERD: Yes Genitourinary: No Hepatitis: No Hiatal Hernia: Yes Hypertension: Yes Immune Disorder: No Musculoskeletal: Yes (arthritis) Neurologic: Yes (hx of migraines) Psychiatric: No Reproductive: No Respiratory: No Migraines: Yes Thyroid Disease: No ?: Not Menopausal: Yes Past Surgical History Abdominal Surgery: Yes (hemorroidectomy, gastric sleeve) AICD: No Cardiac Surgery: No Section: Yes (1979 & 1982) Cholecystectomy: Yes Endocrine Surgery: No Eye Surgery: No Genitourinary Surgery: No Gynecologic Surgery: Yes (x2 hysterectomy) Hysterectomy: Yes Joint Replacement: No Oral Surgery: No Pacemaker: No Thoracic Surgery: Yes (bronchoscopy) Tonsillectomy: Yes Other Surgery: Yes (HEMORRHOIDECTOMY, THROAT BIOPSY) Social History Alcohol Use: No Tobacco Use: No (QUIT 2003) Substance Use: No Allergies-Medications (Allergen,Severity, Reaction): Coded Allergies: Morphine (Verified Allergy, Severe, HIVES, 03/05/17) Percocet (Verified Adverse Reaction, Severe, NAUSEA, 03/05/17) Chlorhexidine (Verified Adverse Reaction, Intermediate, redness and itching, 03/05/17) PATIENT USED 2% CHLORHEXIDINE GLUCONATE CLOTHS TO WASH PRE-OP AND DEVELOPED ITCHING AND REDNESS Reported Meds & Prescriptions Reported Meds & Active Scripts Active Acetaminophen Extra Strength (Acetaminophen) 500 Mg Cap 1,000 Mg PO Q6H PRN Prednisone 20 Mg Tab 20 Mg PO BID Orphenadrine CR (Orphenadrine Citrate) 100 Mg Tab 100 Mg PO Q12HR Zofran Odt (Ondansetron Odt) 4 Mg Tab 4 Mg SL Q6HR PRN Reported Pantoprazole (Pantoprazole Sodium) 40 Mg Tab 40 Mg PO DAILY Review of Systems Except as stated in HPI: all other systems reviewed are Neg General / Constitutional: No: Fever Eyes: No: Visual changes HENT: No: Headaches Cardiovascular: No: Chest Pain or Discomfort Respiratory: No: Shortness of Breath Gastrointestinal: No: Abdominal Pain Genitourinary: No: Dysuria Musculoskeletal: Positive: Myalgias, Arthralgias, Limited ROM, Pain Skin: No Rash Neurologic: No: Weakness Psychiatric: No: Depression Endocrine: No: Polydipsia Hematologic/Lymphatic: No: Easy Bruising Physical Exam Narrative GENERAL: Patient appears in mild distress SKIN: Warm and dry. Normal color. Normal turgor. Patient has a 6 cm x 3 cm ecchymotic area to the left upper lateral hip/buttock. Patient has several other small ecchymotic lesions to the left knee and anterior ramirez. There is no laceration or wound. HEAD: Atraumatic. Normocephalic. EYES: Pupils equal and round. No scleral icterus. No injection or drainage. ENT: No nasal bleeding or discharge. Mucous membranes pink and moist. Pharynx is clear. Airway NECK: Trachea midline. Supple nontender. CARDIOVASCULAR: Regular rate and rhythm. RESPIRATORY: No accessory muscle use. Clear to auscultation. Breath sounds equal bilaterally. MUSCULOSKELETAL: Extremities without clubbing, cyanosis, or edema. No obvious deformities. Patient is able to ambulate with a limp on the left. She is able to stand on the left leg with discomfort. She is able lift the left leg with discomfort in the anterior groin. Pain is worse with lateral rotation of the hip left. NEUROLOGICAL: Awake and alert. No obvious cranial nerve deficits. Motor grossly within normal limits. Five out of 5 muscle strength in the arms and legs. Normal speech. PSYCHIATRIC: Appropriate mood and affect; insight and judgment normal. Data Data Last Documented VS Vital Signs Date Time Temp Pulse Resp B/P Pulse Ox O2 Delivery O2 Flow Rate FiO2 03/05/17 21:17 68 18 99 Room Air 03/05/17 21:08 98.2 138/87 Orders Hip, Uni(Ap&Lat) W Ap Pelvis (03/05/17 21:23) Ketorolac Inj (Toradol Inj) (03/05/17 21:30) MDM Medical Decision Making Medical Screen Exam Complete: Yes Emergency Medical Condition: Yes Differential Diagnosis Fall from slipping. Multiple contusions. Left hip and groin sprain. Possible fracture. Narrative Course Patient is medically stable at time of exam. X-rays of the left hip and pelvis are ordered. Patient is given 60 mg Toradol IM. X-rays show no acute fracture or dislocation. Per radiologist. Patient will be continued on prednisone 20 mg twice a day 5 days. Patient is given Norflex 100 mg 3 times a day #10. For muscle spasm. Patient is also given extra strength Tylenol 2 tabs every 6 hours when necessary #60. Patient is to use heat and ice as discussed. Patient should follow with her primary care physician to ensure improvement. Patient can return to emergency department as needed. Diagnosis Primary Impression: Fall on same level as cause of accidental injury Additional Impressions: Contusion of left hip, initial encounter Unspecified sprain of left hip, initial encounter Referrals: Primary Care Physician Patient Instructions: Contusion in Adults (ED), General Instructions, Hip Sprain (ED) Additional Instructions: Patient is given 60 mg Toradol IM. X-rays show no acute fracture or dislocation. Per radiologist. Patient will be continued on prednisone 20 mg twice a day 5 days. Patient is given Norflex 100 mg 3 times a day #10. For muscle spasm. Patient is also given extra strength Tylenol 2 tabs every 6 hours when necessary #60. Patient is to use heat and ice as discussed. Patient should follow with her primary care physician to ensure improvement. Patient can return to emergency department as needed. Med/Other Pt SpecificInfo: Prescription(s) given Scripts Acetaminophen (Acetaminophen Extra Strength)500 Mg Cap1,000 Mg PO Q6H PRN (PAIN SCALE 4 TO 10) #60 CAP Ref 1 Prov:Ericka Monae MD 03/05/17 Prednisone 20 Mg Tab20 Mg PO BID #10 TAB Prov:Ericka Monae MD 03/05/17 Orphenadrine ER 12 HR (Orphenadrine CR)100 Mg [id number] Mg PO Q12HR #10 TAB Prov:Ericka Monae MD 03/05/17 Soren Mcnamara March 05, 2017 21:22
[2017-03-05] MEDS ORDERED: KETOROLAC TROMETHAMINE 60 MG/2 ML (IM) VIAL IM ONE (21:30)
--- NOTE | 2017-03-05 22:05 | RADHPO ---
EXAM DATE/TIME: 03/05/2017 21:42 [facility] COMPARISON: No previous studies available for comparison. INDICATIONS : Left hip and back pain from fall 4 days ago MEDICAL HISTORY : None. SURGICAL HISTORY : None. ENCOUNTER: Initial ACUITY: 4 - 6 days PAIN SCORE: 5/10 LOCATION: Left entire hip FINDINGS: There is mild osteoarthritis with joint space narrowing and acetabular and femoral osteophyte formati on. No fracture or dislocation. Normal bone density. CONCLUSION: Osteoarthritis. Bridger Montiel MD on March 05, 2017 at 22:03 Board Certified Radiologist. This report was verified electronically.
[2017-03-05] MEDS ORDERED: EXTR500C PO (22:10)
[2017-03-05] MEDS ORDERED: PRED20 PO (22:10)
[2017-03-05] MEDS ORDERED: ORPH100T99 PO (22:10)
== END 2017-03-05 22:45 | disposition home or self-care (01) ==
LOC: PHEFT 20:33
DX: S70.02XA Contusion of left hip, initial encounter (principal); S73.102A Unspecified sprain of left hip, initial encounter; M19.90 Unspecified osteoarthritis, unspecified site; K21.9 Gastro-esophageal reflux disease without esophagitis; I10 Essential (primary) hypertension; Z79.899 Other long term (current) drug therapy; Z88.5 Allergy status to narcotic agent; Z88.8 Allergy status to other drugs, medicaments and biological substances; W19.XXXA Unspecified fall, initial encounter
CPT/HCPCS: 73502; 96372; 99284; J1885

== ENCOUNTER 2018-04-12 21:52 | Inpatient (IN) ==
[2018-04-12] MEDS ORDERED: Famotidine PF Inj 20 MG/2 ML Vial IV.PUSH ONE (23:19)
[2018-04-12] MEDS ORDERED: HYDROmorphone PF Inj 2 MG/ML Vial IV.PUSH ONE (23:28)
--- NOTE | 2018-04-12 23:32 | ED ---
HPI General Chief Complaint: Abdominal Pain Stated Complaint: ABD pain/ n/v Source: patient Mode of arrival: ambulatory Limitations: no limitations History of Present Illness HPI narrative: 62-year-old female complains of abdominal pain, nausea vomiting. Patient status post Donna-en-Y procedure in the past. Patient was admitted last year for small bowel obstruction secondary to adhesion. Patient had laparoscopic surgery at that time. The surgeon was Dr. Dumont Patient states that she has intermittent abdominal pain with nausea vomiting for the past year. Patient states her symptoms get worse this evening. Patient states the pain is sharp severe pain burning pain mostly upper and left upper abdomen with radiation to the rest of the abdomen. Patient states the pain is worse after eating this evening. Patient states that on a scale of 1-10 the MD complaint: abdominal pain Onset (ago): hour(s) Pain Consistency: constant Location: epigastric Severity: severe Severity scale (1-10): 9 Quality: stabbing Radiation: other Migration to: periumbilical Exacerbating factors: nothing Associated symptoms: nausea and vomiting Related Data Home Medications Medication Instructions Recorded Confirmed No Known Home Medications 04/13/18 04/13/18 Allergies Allergy/AdvReac Type Severity Reaction Status Date / Time morphine Allergy Severe HIVES Verified 04/12/18 21:53 acetaminophen AdvReac Severe NAUSEA Verified 04/12/18 21:53 oxycodone AdvReac Severe NAUSEA Verified 04/12/18 21:53 chlorhexidine AdvReac Intermediate redness Verified 04/12/18 21:53 and itching Review of Systems Except as stated in HPI: all other systems reviewed are negative [facility] Medical History Medical History Gallbladder disease (Acute) History of hysterectomy (Acute) Irritable bowel disease (Acute) Surgical History Surgical History History of hemorrhoidectomy (Acute) History of right knee surgery (Acute) Hx of section (Acute) Hx of cholecystectomy (Acute) Hx of tonsillectomy (Acute) Family History Family History Other Coronary artery disease Diabetes Social History Social History Substance History: No History of Abuse Second Hand Smoke Exposure: No Smoking Status: Former smoker Tobacco Type: Cigarettes How Often Do You Have a Drink Containing Alcohol: Never Recent Travel in [facility] within the Last 8 Weeks: No Recent Out of Country Travel within the Last 8 Weeks: No Immunization History Tetanus Immunization: <5 Years Hx Influenza Vaccine This Season: No Exam Narrative Exam Narrative: GENERAL: Well-nourished, well-developed patient. SKIN: Focused skin assessment warm/dry. HEAD: Normocephalic. EYES: No scleral icterus. No injection or drainage. NECK: Supple, trachea midline. No JVD or lymphadenopathy. CARDIOVASCULAR: Regular rate and rhythm without murmurs, gallops, or rubs. RESPIRATORY: Breath sounds equal bilaterally. No accessory muscle use. GASTROINTESTINAL: Abdomen soft, nondistended. Moderate to severe tenderness over epigastric area of the abdomen. No rebound tenderness. No mass. MUSCULOSKELETAL: No cyanosis, or edema. BACK: Nontender without obvious deformity. No CVA tenderness. Course Initial Documented Vital Signs Temperature 98.7 F 04/12/18 21:53 Pulse Rate 67 04/12/18 21:53 Respiratory Rate 20 04/12/18 21:53 Blood Pressure 158/92 H 04/12/18 21:53 Pulse Oximetry 100 04/12/18 21:53 Last Documented Vital Signs Temperature 97.0 F L 04/13/18 15:39 Pulse Rate 67 04/13/18 15:39 Respiratory Rate 18 04/13/18 15:39 Blood Pressure 137/77 04/13/18 15:39 Pulse Oximetry 99 04/13/18 15:39 Medical Decision Making MDM Narrative Medical decision making narrative: 62-year-old female with severe epigastric abdominal pain, nausea vomiting. History of small bowel obstruction. Normal saline solution 125 cc an Dilaudid 1 mg IV. Zofran 4 mg ODT. Pepcid 20 mg IV. Lab Data Result diagrams: 04/12/18 23:25 04/12/18 23:25 Lab Results 04/12/18 04/12/18 04/12/18 Range/Units 23:25 23:25 23:25 CBC w Diff Auto diff final WBC 4.6 (4.0-11.0) th/mm3 RBC 3.92 L (4.00-5.30) mil/mm3 Hgb 12.2 (11.6-15.3) gm/dL Hct 36.2 (35.0-46.0) % MCV 92.3 (80.0-100.0) fL MCH 31.1 (27.0-34.0) pg MCHC 33.7 (32.0-36.0) % RDW 14.1 (11.6-17.2) % Plt Count 176 (150-450) th/mm3 MPV 9.7 (7.0-11.0) fL Neut % (Auto) 50.9 (16.0-70.0) % Lymph % (Auto) 41.5 (9.0-44.0) % [place] % (Auto) 6.0 (0.0-8.0) % Eos % (Auto) 0.7 (0.0-4.0) % Baso % (Auto) 0.9 (0.0-2.0) % Neut # (Auto) 2.4 (1.8-7.7) th/mm3 Lymph # (Auto) 1.9 (1.0-4.8) th/mm3 [place] # (Auto) 0.3 (0.0-0.9) th/mm3 Eos # (Auto) 0.0 (0.0-0.4) th/mm3 Baso # (Auto) 0.0 (0.0-0.2) th/mm3 WBC Differential . PT 10.4 (9.8-11.6) sec INR 1.0 Ratio APTT 26.4 (24.3-30.1) sec Sodium 145 (136-145) meq/L Potassium 4.0 (3.5-5.1) meq/L Chloride 110 H (98-107) meq/L Carbon Dioxide 28.1 (21.0-32.0) meq/L Anion Gap 7 (5-15) meq/L BUN 9 (7-18) mg/dL Creatinine 0.69 (0.50-1.00) mg/dL Estimated GFR Greater than 89 (>89) mL/min Random Glucose 96 (74-106) mg/dL Calcium 9.3 (8.5-10.1) mg/dL Total Bilirubin 1.0 (0.2-1.0) mg/dL AST 29 (15-37) U/L ALT 29 (10-53) U/L Alkaline Phosphatase 86 (45-117) U/L Total Protein 7.3 (6.4-8.2) g/dL Albumin 3.8 (3.4-5.0) g/dL Lipase 65 L (73-393) U/L Urine Color (Yellw/Straw) Urine Clarity (Clear) Urine pH (5.0-8.5) Ur Specific [place] (1.002-1.035) Urine Protein (Neg-Trace) mg/dL Urine Glucose (UA) (Negative) mg/dL Urine Ketones (Negative) mg/dL Urine Occult Blood (Negative) Urine Nitrate (Negative) Urine Bilirubin (Negative) Urine Urobilinogen (Less than 2) mg/dL Ur Leukocyte Esterase (Negative) Urine RBC (0-3) /hpf Urine WBC (0-5) /hpf Ur Squamous Epith Cells (0-5) /hpf Urine Bacteria (None) /hpf Micro UA Comment Urine Culture Comments 04/13/18 Range/Units 01:25 CBC w Diff WBC (4.0-11.0) th/mm3 RBC (4.00-5.30) mil/mm3 Hgb (11.6-15.3) gm/dL Hct (35.0-46.0) % MCV (80.0-100.0) fL MCH (27.0-34.0) pg MCHC (32.0-36.0) % RDW (11.6-17.2) % Plt Count (150-450) th/mm3 MPV (7.0-11.0) fL Neut % (Auto) (16.0-70.0) % Lymph % (Auto) (9.0-44.0) % [place] % (Auto) (0.0-8.0) % Eos % (Auto) (0.0-4.0) % Baso % (Auto) (0.0-2.0) % Neut # (Auto) (1.8-7.7) th/mm3 Lymph # (Auto) (1.0-4.8) th/mm3 [place] # (Auto) (0.0-0.9) th/mm3 Eos # (Auto) (0.0-0.4) th/mm3 Baso # (Auto) (0.0-0.2) th/mm3 WBC Differential PT (9.8-11.6) sec INR Ratio APTT (24.3-30.1) sec Sodium (136-145) meq/L Potassium (3.5-5.1) meq/L Chloride (98-107) meq/L Carbon Dioxide (21.0-32.0) meq/L Anion Gap (5-15) meq/L BUN (7-18) mg/dL Creatinine (0.50-1.00) mg/dL Estimated GFR (>89) mL/min Random Glucose (74-106) mg/dL Calcium (8.5-10.1) mg/dL Total Bilirubin (0.2-1.0) mg/dL AST (15-37) U/L ALT (10-53) U/L Alkaline Phosphatase (45-117) U/L Total Protein (6.4-8.2) g/dL Albumin (3.4-5.0) g/dL Lipase (73-393) U/L Urine Color Yellow (Yellw/Straw) Urine Clarity Clear (Clear) Urine pH 7.0 (5.0-8.5) Ur Specific [place] 1.010 (1.002-1.035) Urine Protein Negative (Neg-Trace) mg/dL Urine Glucose (UA) Negative (Negative) mg/dL Urine Ketones 15 H (Negative) mg/dL Urine Occult Blood Negative (Negative) Urine Nitrate Negative (Negative) Urine Bilirubin Negative (Negative) Urine Urobilinogen 1.0 (Less than 2) mg/dL Ur Leukocyte Esterase Negative (Negative) Urine RBC 0-3 (0-3) /hpf Urine WBC 0-5 (0-5) /hpf Ur Squamous Epith Cells 0-5 (0-5) /hpf Urine Bacteria Rare H (None) /hpf Micro UA Comment Culture not ind Urine Culture Comments Culture not ind Imaging Data Radiologist's impression: ITS Impressions Abdomen/Pelvis CT 04/13/18 00:01 CONCLUSION: 1. Constellation of findings suggests either small bowel obstruction or localized ileus; the findings include: Dilated proximal small bowel, nondilated distal small bowel, mild ascites, and evidence of prior abdominal surgery. 2. Possible small pericardial effusion. Discharge Plan Discharge Disposition Patient Disposition: 30 Still Patient Discharge Details Discharge Problem: Small bowel obstruction Physicians Team ED Provider: Jos Tapia Primary Care Provider: Paul Kent Attending Provider: Sulema Crowell Discharge Interventions Interventions: ED Discharge Assessment Last Done: 04/13/18 06:42 Status ED Status: Left Department Discharge Information Discharge Date/Time: 04/13/18 06:46
[2018-04-12 23:40] LABS: Baso % (Auto) 0.9 % (0.0-2.0); Eos % (Auto) 0.7 % (0.0-4.0); Hematocrit 36.2 % (35.0-46.0); Hemoglobin 12.2 gm/dL (11.6-15.3); Lymph # (Auto) 1.9 th/mm3 (1.0-4.8); Lymph % (Auto) 41.5 % (9.0-44.0); Mean Corpuscular HGB Conc 33.7 % (32.0-36.0); Mean Corpuscular Hemoglobin 31.1 pg (27.0-34.0); Mean Corpuscular Volume 92.3 fL (80.0-100.0); Mean Platelet Volume 9.7 fL (7.0-11.0); Mono # (Auto) 0.3 th/mm3 (0.0-0.9); Neut # (Auto) 2.4 th/mm3 (1.8-7.7); Neut % (Auto) 50.9 % (16.0-70.0); Platelet Count 176 th/mm3 (150-450); Red Blood Count 3.92 mil/mm3 (4.00-5.30); Red Cell Distribution Width 14.1 % (11.6-17.2); White Blood Count 4.6 th/mm3 (4.0-11.0)
[2018-04-12 23:44] LABS: Chloride 110 meq/L (98-107); Sodium 145 meq/L (136-145)
[2018-04-12 23:48] LABS: Albumin 3.8 g/dL (3.4-5.0); Anion Gap 7 meq/L (5-15); Calcium 9.3 mg/dL (8.5-10.1); Carbon Dioxide 28.1 meq/L (21.0-32.0); Glucose,Random 96 mg/dL (74-106); Lipase 65 U/L (73-393)
[2018-04-12 23:49] LABS: Blood Urea Nitrogen 9 mg/dL (7-18)
[2018-04-12 23:51] LABS: Alanine Aminotransferase 29 U/L (10-53); Aspartate Aminotransferase 29 U/L (15-37); Glomerular Filtration Rate Greater Than 89 mL/min (>89)
[2018-04-12 23:53] LABS: Total Protein 7.3 g/dL (6.4-8.2)
[2018-04-12 23:54] LABS: Alkaline Phosphatase 86 U/L (45-117)
[2018-04-13 00:04] LABS: Activated Partial Thrombo Time 26.4 sec (24.3-30.1); Prothrombin Time 10.4 sec (9.8-11.6)
[2018-04-13] MEDS: Sod Chloride 0.9% Inj 1,000 ML IV.CONT SCH ×3 (00:05→19:48)
[2018-04-13 01:34] LABS: Bilirubin,Urine Negative (Negative); Clarity,Urine Clear (Clear); Color,Urine Yellow (Yellw/Straw); Glucose,Urine (UA) Negative (Negative); Leukocyte Esterase,Urine Negative (Negative); Nitrite,Urine Negative (Negative)
[2018-04-13 01:46] LABS: RBC,Urine 0-3 /hpf (0-3); Squamous Epithelial Cell,Urine 0-5 /hpf (0-5); WBC,Urine 0-5 /hpf (0-5)
[2018-04-13 01:47] LABS: Bacteria,Urine Rare /hpf
[2018-04-13] MEDS ORDERED: Bisacodyl 10 MG Supp RECTAL PRN ×2 (03:53→18:41)
--- NOTE | 2018-04-13 08:08 | P.HP ---
History of Present Illness Primary Care Physician: Paul Kent Chief Complaint: Abdominal pain History of Present Illness: This is a 62-year-old female patient with a known medical history of irritable bowel syndrome who presented to the ED with complaints of abdominal pain, nausea and vomiting since yesterday afternoon. Patient states that after she ate a late lunch yesterday afternoon she developed severe abdominal pain in her left upper quadrant that radiated to her upper right quadrant, with associated nausea and vomiting. She states prior to her symptoms starting she was in her normal state of health. Denies any recent bloody or black stools. Does admit to chronic diarrhea. States that she did have one bout of bloody emesis this morning. After review of records patient did undergo a Donna-en-Y procedure in September by Dr. Paul. Also suffered from a small bowel obstruction secondary to adhesion in October of this year. Patient states that since these procedures she has been having intermittent abdominal pain, nausea and vomiting. She states that the symptoms seem to worsen in the evening. Patient characterized her pain has sharp in nature, rates the pain at its worst a 10 out of 10 on pain scale. She reports that she sees Dr. Gibson, did undergo an EGD and colonoscopy in February at that time her upper GI tract was biopsied with unknown results. Patient also has been following with [facility] for chronic diarrhea. She is supposed to have follow-up later this month. - Diagnosis (1) Small bowel obstruction (2) Ileus - Inpatient Certification If this patient has been admitted as an Inpatient: I certify that the inpatient services were ordered in accordance with Medicare regulations governing the order. This includes certification that hospital inpatient services are reasonable and necessary and in the case of services not specified as inpatient-only under 42 CFR 419.22(n), that they are appropriately provided as inpatient services in accordance to with the 2-midnight benchmark under 43 CFR 412.3(e) Estimated Total Length of Stay (Days): 2 Plans for Post Hospital Care: Not yet determined Review of Systems All other systems reviewed negative except as stated in [facility] PMF[facility] - History History Provided By: Patient - Medical History Medical History: Medical History (Last Updated 04/13/18 @ 12:48 by Ericka Workman) Gallbladder disease History of hysterectomy Irritable bowel disease - Surgical History Surgical History: Surgical History (Last Updated 07/02/18 @ 12:48 by Ericka Workman) History of hemorrhoidectomy History of right knee surgery Hx of section Hx of cholecystectomy Hx of tonsillectomy - Family History Family History: Family History (Last Updated 04/13/18 @ 12:48 by Ericka Workman) Other Coronary artery disease Diabetes - Tobacco History Smoking Status: Former smoker Tobacco Type: Cigarettes - Alcohol History How Often Do You Have a Drink Containing Alcohol: Never - Substance Use History Substance History: No History of Abuse - Travel History Recent Travel in the [place] Within the Last 8 Weeks: No Recent Travel Out of the Country Within the Last 8 Weeks: No - Immunization History Tetanus Immunization: <5 Years Hx Influenza Vaccine This Season: No Medications and Allergies Active Medications: Active Medications Al Hydroxide/Mg Hydroxide (Milk Of Magnesia Liq) 30 ml PO Q12H PRN PRN Reason: Mild Constipation Bisacodyl (Dulcolax Supp) 10 mg RECTAL DAILY PRN PRN Reason: SEVERE CONSITIPATION Sodium Chloride (Ns Inj) 1,000 mls @ 125 mls/hr IV.CONT .Q8H СЕРГЕЙ Last Admin: 04/13/18 00:05 Dose: 125 mls/hr Sodium Chloride (Ns Inj) 1,000 mls @ 100 mls/hr IV.CONT .Q10H СЕРГЕЙ Lactulose (Lactulose Liq) 30 ml PO DAILY PRN PRN Reason: SEVERE CONSITIPATION Metoclopramide HCl (Reglan Inj) 5 mg IV.PUSH Q6HR PRN; Protocol PRN Reason: NAUSEA OR VOMITING Sennosides (Senokot) 17.2 mg PO Q12H PRN PRN Reason: Moderate Constipation Sodium Chloride (Ns Flush) 2 ml IV.FLUSH PRN PRN PRN Reason: FLUSH AFTER USING IV ACCESS Last Admin: 04/13/18 00:08 Dose: 2 ml Allergies Allergy/AdvReac Type Severity Reaction Status Date / Time morphine Allergy Severe HIVES Verified 04/12/18 21:53 acetaminophen AdvReac Severe NAUSEA Verified 04/12/18 21:53 oxycodone AdvReac Severe NAUSEA Verified 04/12/18 21:53 chlorhexidine AdvReac Intermediate redness Verified 04/12/18 21:53 and itching Home Medications Medication Instructions Recorded Confirmed Type No Known Home Medications 04/13/18 04/13/18 History Exam Vital signs: Vital Signs 04/12/18 21:53 04/12/18 22:20 04/12/18 22:44 Temperature 98.7 F 98.7 F Pulse Rate 67 67 68 Respiratory Rate 20 20 20 Blood Pressure 158/92 H 158/92 H 154/96 H Pulse Oximetry 100 100 96 04/12/18 23:19 04/13/18 00:15 04/13/18 00:36 Temperature Pulse Rate 68 62 Respiratory Rate 18 18 Blood Pressure 129/72 Pulse Oximetry 96 04/13/18 01:15 04/13/18 03:00 04/13/18 04:59 Temperature Pulse Rate 66 68 67 Respiratory Rate 18 18 18 Blood Pressure 134/76 120/84 127/76 Pulse Oximetry 96 96 04/13/18 06:02 04/13/18 06:42 Temperature Pulse Rate 58 L Respiratory Rate 18 16 Blood Pressure 122/74 114/76 Pulse Oximetry 100 98 Intake & Output 04/12/18 04/13/18 04/13/18 18:59 06:59 18:59 Weight 99 kg Narrative: GENERAL: Well-developed, well-nourished patient in [employer]. SKIN: Warm and dry. No rash. HEAD: Normocephalic. Atraumatic. EYES: Pupils equal and round. No scleral icterus. No injection or drainage. ENT: No nasal bleeding or discharge. Mucous membranes pink and moist. NECK: Supple. Trachea midline. CARDIOVASCULAR: Regular rate and rhythm. S1, S2 noted. No murmur appreciated. RESPIRATORY: No accessory muscle use. Clear to auscultation. Breath sounds equal bilaterally. GASTROINTESTINAL: Abdomen soft, nondistended. Normoactive bowel sounds x4. Mild tenderness to palpation of the left upper quadrant. MUSCULOSKELETAL: No obvious deformities. Extremities without clubbing, cyanosis , or edema. NEUROLOGICAL: Awake and alert. No obvious cranial nerve deficits. Motor grossly within normal limits. 5/5 muscle strength in bilateral upper and lower extremities. Normal speech. PSYCHIATRIC: Appropriate mood and affect; insight and judgment normal. Results - Labs CBC & Chem 7: 04/12/18 23:25 04/12/18 23:25 Labs: Laboratory Results - last 24 hr 04/12/18 04/12/18 04/12/18 23:25 23:25 23:25 CBC w Diff Auto diff final WBC 4.6 RBC 3.92 L Hgb 12.2 Hct 36.2 MCV 92.3 MCH 31.1 MCHC 33.7 RDW 14.1 Plt Count 176 MPV 9.7 Neut % (Auto) 50.9 Lymph % (Auto) 41.5 [place] % (Auto) 6.0 Eos % (Auto) 0.7 Baso % (Auto) 0.9 Neut # (Auto) 2.4 Lymph # (Auto) 1.9 [place] # (Auto) 0.3 Eos # (Auto) 0.0 Baso # (Auto) 0.0 WBC Differential . PT 10.4 INR 1.0 APTT 26.4 Sodium 145 Potassium 4.0 Chloride 110 H Carbon Dioxide 28.1 Anion Gap 7 BUN 9 Creatinine 0.69 Estimated GFR Greater than 89 Random Glucose 96 Calcium 9.3 Total Bilirubin 1.0 AST 29 ALT 29 Alkaline Phosphatase 86 Total Protein 7.3 Albumin 3.8 Lipase 65 L Urine Color Urine Clarity Urine pH Ur Specific [place] Urine Protein Urine Glucose (UA) Urine Ketones Urine Occult Blood Urine Nitrate Urine Bilirubin Urine Urobilinogen Ur Leukocyte Esterase Urine RBC Urine WBC Ur Squamous Epith Cells Urine Bacteria Micro UA Comment Urine Culture Comments 04/13/18 01:25 CBC w Diff WBC RBC Hgb Hct MCV MCH MCHC RDW Plt Count MPV Neut % (Auto) Lymph % (Auto) [place] % (Auto) Eos % (Auto) Baso % (Auto) Neut # (Auto) Lymph # (Auto) [place] # (Auto) Eos # (Auto) Baso # (Auto) WBC Differential PT INR APTT Sodium Potassium Chloride Carbon Dioxide Anion Gap BUN Creatinine Estimated GFR Random Glucose Calcium Total Bilirubin AST ALT Alkaline Phosphatase Total Protein Albumin Lipase Urine Color Yellow Urine Clarity Clear Urine pH 7.0 Ur Specific [place] 1.010 Urine Protein Negative Urine Glucose (UA) Negative Urine Ketones 15 H Urine Occult Blood Negative Urine Nitrate Negative Urine Bilirubin Negative Urine Urobilinogen 1.0 Ur Leukocyte Esterase Negative Urine RBC 0-3 Urine WBC 0-5 Ur Squamous Epith Cells 0-5 Urine Bacteria Rare H Micro UA Comment Culture not ind Urine Culture Comments Culture not ind - Imaging Impressions Abdomen/Pelvis CT 04/13/18 00:01 CONCLUSION: 1. Constellation of findings suggests either small bowel obstruction or localized ileus; the findings include: Dilated proximal small bowel, nondilated distal small bowel, mild ascites, and evidence of prior abdominal surgery. 2. Possible small pericardial effusion. Caprini VTE Risk Assessment Caprini VTE Risk Assessment: Moderate/High Risk (score >= 2) Caprini Risk Assessment Model: Point Value = 1 Point Value = 2 Point Value = 3 Point Value = 5 Age 41-60 Minor surgery BMI > 25 kg/m2 Swollen legs Varicose veins or History of unexplained or recurrent spontaneous Oral contraceptives or hormone replacement Sepsis (< 1 month) Serious lung disease, including pneumonia (< 1 month) Abnormal pulmonary function Acute myocardial infarction Congestive heart failure (< 1 month) History of inflammatory bowel disease Medical patient at bed rest Age 61-74 Arthroscopic surgery Major open surgery (> 45 min) Laparoscopic surgery (> 45 min) Malignancy Confined to bed (> 72 hours) Immobilizing plaster cast Central venous access Age >= 75 History of VTE Family history of VTE Factor V Leiden Prothrombin [id number] Lupus anticoagulant Anticardiolipin antibodies Elevated serum homocysteine Heparin-induced thrombocytopenia Other congenital or acquired thrombophilia Stroke (< 1 month) Elective arthroplasty Hip, pelvis, or leg fracture Acute spinal cord injury (< 1 month) Prophylaxis Regimen: Total Risk Factor Score Risk Level Prophylaxis Regimen 0-1 Low Early ambulation 2 Moderate Order ONE of the following: *Sequential Compression Device (SCD) *Heparin 5000 units SQ BID 3-4 Higher Order ONE of the following medications: *Heparin 5000 units SQ TID *Enoxaparin/Lovenox 40 mg SQ daily (WT < 150 kg, CrCl > 30 mL/min) *Enoxaparin/Lovenox 30 mg SQ daily (WT < 150 kg, CrCl > 10-29 mL/min) *Enoxaparin/Lovenox 30 mg SQ BID (WT < 150 kg, CrCl > 30 mL/min) AND/OR *Sequential Compression Device (SCD) 5 or more Highest Order ONE of the following medications: *Heparin 5000 units SQ TID (Preferred with Epidurals) *Enoxaparin/Lovenox 40 mg SQ daily (WT < 150 kg, CrCl > 30 mL/min) *Enoxaparin/Lovenox 30 mg SQ daily (WT < 150 kg, CrCl > 10-29 mL/min) *Enoxaparin/Lovenox 30 mg SQ BID (WT < 150 kg, CrCl > 30 mL/min) AND *Sequential Compression Device (SCD) Assessment and Plan - Assessment (1) Small bowel obstruction Code(s): K56.609 - Unspecified intestinal obstruction, unspecified as to partial versus complete obstruction Status: Acute (2) Ileus Code(s): K56.7 - Ileus, unspecified Status: Acute - Plan This is a 62-year-old female patient with a known medical history of irritable bowel syndrome who presented to the ED with complaints of abdominal pain, nausea and vomiting since yesterday afternoon. Rule out small bowel obstruction versus ileus secondary to adhesions History of small bowel obstruction October 2017 History of Donna-en-Y procedure in September 2017 Status post cholecystectomy 2016 - Patient presented with abdominal pain, nausea and vomiting. Symptoms have improved since presentation. - Abdominal/pelvis CT reviewed showing either small bowel obstruction versus localized ileus. - Consult placed to general surgery, input and recommendations pending. Follow. We will keep n.p.o. for now. - CBC and BMP reviewed, essentially remarkable. UA negative. - Started on IV fluids. Will continue. - Supportive care. Reglan for nausea or vomiting. Pain is controlled. DVT prophylaxis: SCDs.
--- NOTE | 2018-04-13 11:28 | ECG ---
Date Performed: 04/12/2018 Time Performed: 23:34:49 PTAGE: 62 years EKG: Sinus rhythm NORMAL ECG PREVIOUS TRACING : 11/17/2016 12.37 Since the previous tracing, no significant change noted DOCTOR: Dutch Doss Interpretating Date/Time 04/13/2018 11:26:29
[2018-04-13] MEDS ORDERED: Lidocaine PF 1% Inj 5 ML Syringe INFILTRATN ONE (12:00)
[2018-04-13] MEDS ORDERED: Glycopyrrolate Inj 1 MG/5 ML Syringe IV.PUSH ONE (12:00)
[2018-04-13] MEDS ORDERED: Neostigmine Inj 5 MG/5 ML Syringe IV.PUSH ONE (12:00)
[2018-04-13] MEDS ORDERED: HYDROmorphone PF Inj 2 MG/ML Vial IV.PUSH PRN (18:41)
[2018-04-13] MEDS ORDERED: Post-op Orders (for Pharmacy) OTHER ONE (18:41)
[2018-04-13] MEDS ORDERED: Promethazine 25 MG Supp RECTAL PRN (18:41)
[2018-04-13] MEDS ORDERED: Sugammadex Inj 200 MG/2 ML Vial IV.PUSH ONE (18:52)
[2018-04-13] MEDS ORDERED: fentaNYL Citrate Inj 100 MCG/2 ML Ampul ONE (19:12)
[2018-04-14] MEDS: ceFAZolin Inj 1,000 MG in Sodium Chlor 0.9% Inj 100 ML IV.SIG SCH ×3 (02:36→17:35)
[2018-04-14] MEDS: Sod Chloride 0.9% Inj 1,000 ML IV.CONT SCH ×5 (05:11→17:36)
[2018-04-14 08:15] LABS: Baso % (Auto) 0.2 % (0.0-2.0); Hematocrit 32.8 % (35.0-46.0); Hemoglobin 10.8 gm/dL (11.6-15.3); Lymph # (Auto) 0.6 th/mm3 (1.0-4.8); Lymph % (Auto) 17.2 % (9.0-44.0); Mean Corpuscular Volume 93.8 fL (80.0-100.0); Mean Platelet Volume 9.1 fL (7.0-11.0); Mono # (Auto) 0.2 th/mm3 (0.0-0.9); Mono % (Auto) 5.1 % (0.0-8.0); Neut # (Auto) 2.8 th/mm3 (1.8-7.7); Neut % (Auto) 77.5 % (16.0-70.0); Platelet Count 147 th/mm3 (150-450); Red Blood Count 3.49 mil/mm3 (4.00-5.30); Red Cell Distribution Width 14.4 % (11.6-17.2); White Blood Count 3.6 th/mm3 (4.0-11.0)
[2018-04-14 08:28] LABS: Albumin 2.9 g/dL (3.4-5.0); Anion Gap 10 meq/L (5-15); Aspartate Aminotransferase 43 U/L (15-37); Blood Urea Nitrogen 6 mg/dL (7-18); Calcium 7.9 mg/dL (8.5-10.1); Carbon Dioxide 23.9 meq/L (21.0-32.0); Chloride 113 meq/L (98-107); Glomerular Filtration Rate Greater Than 89 mL/min (>89); Glucose,Random 78 mg/dL (74-106); Potassium 3.6 meq/L (3.5-5.1); Sodium 147 meq/L (136-145)
[2018-04-14 08:34] LABS: Alanine Aminotransferase 40 U/L (10-53); Alkaline Phosphatase 92 U/L (45-117); Total Protein 5.8 g/dL (6.4-8.2)
--- NOTE | 2018-04-14 11:23 | P.PN ---
Subjective Interval history: Nursing denies any deterioration since last night. Has not passed gas or had a bowel movement as of yet. Patient is apparently POD # 1 status post lysis of adhesions. Awaiting for operative report to show up in the software. Physical Exam Vital signs: Vital Signs 04/13/18 12:00 04/13/18 15:39 04/13/18 19:04 Temperature 97.8 F 97.0 F L 97.8 F Pulse Rate 64 67 88 Respiratory Rate 18 18 14 Blood Pressure 139/82 137/77 147/80 H Pulse Oximetry 99 99 100 04/13/18 19:15 04/13/18 19:30 04/13/18 19:45 Temperature Pulse Rate 75 77 79 Respiratory Rate 16 13 17 Blood Pressure 147/80 H 140/73 141/80 H Pulse Oximetry 100 100 100 04/13/18 20:00 04/14/18 00:00 04/14/18 04:00 Temperature 97.5 F L 97.9 F 97.7 F Pulse Rate 82 85 82 Respiratory Rate 15 15 15 Blood Pressure 136/71 135/72 140/70 Pulse Oximetry 100 100 100 04/14/18 08:00 04/14/18 09:45 Temperature 97.8 F Pulse Rate 95 H Respiratory Rate 18 16 Blood Pressure 146/75 H Pulse Oximetry 98 Intake & Output 04/13/18 04/14/18 04/14/18 18:59 06:59 18:59 Intake Total 0 / 0 3800 / 3800 100 / 100 Output Total 1745 / 1745 Balance 0 / 0 2055 / 2055 100 / 100 Weight 99 kg Intake: IV 2300 / 2300 100 / 100 NS Inj 1,000 ML @ 100 mls/hr IV 1999 / 1999 .CONT .Q10H СЕРГЕЙ Rx#:[id number] Ofirmev Inj 1,000 mg In 100 ml 200 / 200 100 / 100 @ 400 mls/hr IV.SIG Q6H СЕРГЕЙ Rx# :[id number] Ancef Inj 1,000 MG In NS Inj 100 / 100 100 ML @ 200 mls/hr IV.SIG Q8H СЕРГЕЙ Rx#:[id number] Oral 0 / 0 0 / 0 Anesthesia Amount 1500 / 1500 Output: Urine 1500 / 1500 Estimated Blood Loss 20 / 20 Urine Amount (Catheter) 225 / 225 Indwelling Urethral Catheter 225 / 225 Other: # Voids 2 Narrative: Abdomen is soft, minimally tender to palpation, nondistended Has multiple incision sites that are dry clean and intact - Urinary Catheter Management Indwelling Urethral Catheter Cath placed during this visit: yes Reason for continuing: Other continuation reason Insertion date: 04/13/18 Insertion time: 16:20 Results - Labs CBC & Chem 7: 04/14/18 06:51 04/14/18 06:51 Laboratory Results - last 24 hr 04/14/18 04/14/18 06:51 06:51 WBC 3.6 L RBC 3.49 L Hgb 10.8 L Hct 32.8 L MCV 93.8 MCH 31.0 MCHC 33.0 RDW 14.4 Plt Count 147 L MPV 9.1 Neut % (Auto) 77.5 H Lymph % (Auto) 17.2 [place] % (Auto) 5.1 Eos % (Auto) 0.0 Baso % (Auto) 0.2 Neut # (Auto) 2.8 Lymph # (Auto) 0.6 L [place] # (Auto) 0.2 Eos # (Auto) 0.0 Baso # (Auto) 0.0 WBC Differential . Differential Comment Auto diff final Sodium 147 H Potassium 3.6 Chloride 113 H Carbon Dioxide 23.9 Anion Gap 10 BUN 6 L Creatinine 0.42 L Estimated GFR Greater than 89 Random Glucose 78 Calcium 7.9 L D Total Bilirubin 0.7 AST 43 H ALT 40 Alkaline Phosphatase 92 Total Protein 5.8 L D Albumin 2.9 L D Assessment and Plan - Assessment (1) Small bowel obstruction Code(s): K56.609 - Unspecified intestinal obstruction, unspecified as to partial versus complete obstruction Status: Acute (2) Ileus Code(s): K56.7 - Ileus, unspecified Status: Acute - Plan This is a 62-year-old female patient with a known medical history of irritable bowel syndrome who presented to the ED with complaints of abdominal pain, nausea and vomiting. Rule out small bowel obstruction versus ileus secondary to adhesions -Postop day 1; surgery following, assuming patient will be transitioned to clear liquids once she passes gas - gen surg following - BC and BMP reviewed, essentially remarkable. UA negative. - IV fluids. Will continue. - Supportive care. Reglan for nausea or vomiting. Pain is controlled.
--- NOTE | 2018-04-14 12:13 | P.PNGS ---
<Samir Cheung - Last Filed: 04/14/18 12:13> Subjective Patient reports: pain is less, no flatus Physical Exam Vital signs: Vital Signs 04/13/18 15:39 04/13/18 19:04 04/13/18 19:15 Temperature 97.0 F L 97.8 F Pulse Rate 67 88 75 Respiratory Rate 18 14 16 Blood Pressure 137/77 147/80 H 147/80 H Pulse Oximetry 99 100 100 04/13/18 19:30 04/13/18 19:45 04/13/18 20:00 Temperature 97.5 F L Pulse Rate 77 79 82 Respiratory Rate 13 17 15 Blood Pressure 140/73 141/80 H 136/71 Pulse Oximetry 100 100 100 04/14/18 00:00 04/14/18 04:00 04/14/18 08:00 Temperature 97.9 F 97.7 F 97.8 F Pulse Rate 85 82 95 H Respiratory Rate 15 15 18 Blood Pressure 135/72 140/70 146/75 H Pulse Oximetry 100 100 98 04/14/18 09:45 Temperature Pulse Rate Respiratory Rate 16 Blood Pressure Pulse Oximetry Intake & Output 04/13/18 04/14/18 04/14/18 18:59 06:59 18:59 Intake Total 0 / 0 3800 / 3800 100 / 100 Output Total 1745 / 1745 Balance 0 / 0 2055 / 2055 100 / 100 Weight 99 kg Intake: IV 2300 / 2300 100 / 100 NS Inj 1,000 ML @ 100 mls/hr IV 1999 / 1999 .CONT .Q10H СЕРГЕЙ Rx#:[id number] Ofirmev Inj 1,000 mg In 100 ml 200 / 200 100 / 100 @ 400 mls/hr IV.SIG Q6H СЕРГЕЙ Rx# :[id number] Ancef Inj 1,000 MG In NS Inj 100 / 100 100 ML @ 200 mls/hr IV.SIG Q8H СЕРГЕЙ Rx#:[id number] Oral 0 / 0 0 / 0 Anesthesia Amount 1500 / 1500 Output: Urine 1500 / 1500 Estimated Blood Loss 20 / 20 Urine Amount (Catheter) 225 / 225 Indwelling Urethral Catheter 225 / 225 Other: # Voids 2 - Constitutional no acute distress - Routine Respiratory Exam Present: CTA bilaterally - Routine Abdominal Exam Present: tenderness - Urinary Catheter Management Indwelling Urethral Catheter Cath placed during this visit: yes Reason for continuing: Decision to DC catheter Insertion date: 04/13/18 Insertion time: 16:20 Assessment and Plan - Assessment (1) Small bowel obstruction Code(s): K56.609 - Unspecified intestinal obstruction, unspecified as to partial versus complete obstruction Status: Acute Plan: Continue with frequent ambulation, at least QID Ok to D/C wells Ketorolac for pain Increase to clear liquids with no concentrated sweets - Plan Code Status: Full - Attending Attestation The exam, history, and the medical decision-making described in the above note were completed with the assistance of the mid-level provider. I reviewed and agree with the findings presented. I attest that I had a [id number] encounter with the patient on the same day, and personally performed and documented my assessment and findings in the medical record. <Osito Dumont - Last Filed: 05/11/18 17:48> Physical Exam - Urinary Catheter Management Indwelling Urethral Catheter Cath placed during this visit: no
[2018-04-14] MEDS: Ketorolac 10 MG Tablet PO PRN (15:49)
[2018-04-14] MEDS ORDERED: Enoxaparin Inj 40 MG/0.4 ML Syringe SQ SCH (18:00)
[2018-04-15] MEDS: Ketorolac 10 MG Tablet PO PRN (00:06)
[2018-04-15] MEDS: Sod Chloride 0.9% Inj 1,000 ML IV.CONT SCH ×2 (03:32→08:27)
[2018-04-15 06:12] LABS: Hematocrit 30.9 % (35.0-46.0); Hemoglobin 10.3 gm/dL (11.6-15.3); Mean Corpuscular HGB Conc 33.2 % (32.0-36.0); Mean Corpuscular Hemoglobin 31.2 pg (27.0-34.0); Mean Platelet Volume 9.1 fL (7.0-11.0); Platelet Count 147 th/mm3 (150-450); Red Blood Count 3.29 mil/mm3 (4.00-5.30); Red Cell Distribution Width 14.7 % (11.6-17.2); White Blood Count 4.9 th/mm3 (4.0-11.0)
[2018-04-15 06:33] LABS: Albumin 2.8 g/dL (3.4-5.0); Anion Gap 10 meq/L (5-15); Blood Urea Nitrogen 7 mg/dL (7-18); Calcium 8.4 mg/dL (8.5-10.1); Carbon Dioxide 25.9 meq/L (21.0-32.0); Chloride 111 meq/L (98-107); Glomerular Filtration Rate Greater Than 89 mL/min (>89); Glucose,Random 68 mg/dL (74-106); Magnesium 1.9 mg/dL (1.5-2.5); Potassium 3.7 meq/L (3.5-5.1); Sodium 147 meq/L (136-145)
[2018-04-15 06:35] LABS: Alanine Aminotransferase 30 U/L (10-53); Aspartate Aminotransferase 28 U/L (15-37)
[2018-04-15 06:36] LABS: Alkaline Phosphatase 84 U/L (45-117); Total Protein 5.7 g/dL (6.4-8.2)
[2018-04-15 10:19] VITALS: PULSE 60
--- NOTE | 2018-04-15 11:51 | P.DS ---
Date of admission: 04/13/18 04:31 Primary care physician: Paul Kent Brief History from admission: This is a 62-year-old female patient with a known medical history of irritable bowel syndrome who presented to the ED with complaints of abdominal pain, nausea and vomiting since yesterday afternoon. Patient states that after she ate a late lunch yesterday afternoon she developed severe abdominal pain in her left upper quadrant that radiated to her upper right quadrant, with associated nausea and vomiting. She states prior to her symptoms starting she was in her normal state of health. Denies any recent bloody or black stools. Does admit to chronic diarrhea. States that she did have one bout of bloody emesis this morning. After review of records patient did undergo a Donna-en-Y procedure in September by Dr. Paul. Also suffered from a small bowel obstruction secondary to adhesion in October of this year. Patient states that since these procedures she has been having intermittent abdominal pain, nausea and vomiting. She states that the symptoms seem to worsen in the evening. Patient characterized her pain has sharp in nature, rates the pain at its worst a 10 out of 10 on pain scale. She reports that she sees Dr. Gibson, did undergo an EGD and colonoscopy in February at that time her upper GI tract was biopsied with unknown results. Patient also has been following with [facility] for chronic diarrhea. She is supposed to have follow-up later this month. DS: Diagnosis - Discharge Diagnosis (1) Small bowel obstruction Status: Acute (2) Ileus Status: Acute DS: Medications - Discharge Medications Prescriptions: ketorolac 10 mg PO Q6HR PRN #12 tab PRN Reason: Acute Pain ondansetron 4 mg PO Q8H PRN #8 tab PRN Reason: Nausea Or Vomiting DS: Summary Hospital Course: Patient was admitted. Underwent lysis of abdominal adhesions. Eventually tolerated clear and full liquids well. Patient has been maximal benefit from hospitalization and is clinically stable for discharge. - Time Spent with Patient Total time spent providing and/or coordinating discharge services: Less than 30 minutes - Quality: VTE Deep Vein Thrombosis/Pulmonary Embolism Present on Admission: No Exam Vital signs: Vital Signs 04/14/18 12:00 04/14/18 16:00 04/14/18 20:00 Temperature 98.1 F 97.9 F 98 F Pulse Rate 63 65 62 Respiratory Rate 18 18 18 Blood Pressure 150/79 H 150/75 H 158/85 H Pulse Oximetry 97 100 97 04/15/18 00:00 04/15/18 08:00 Temperature 97.8 F 97.7 F Pulse Rate 69 60 Respiratory Rate 17 17 Blood Pressure 123/59 L 148/71 H Pulse Oximetry 95 97 Intake & Output 04/14/18 04/15/18 04/15/18 18:59 06:59 18:59 Intake Total 1400 / 1400 1440 / 1440 100 / 100 Balance 1400 / 1400 1440 / 1440 100 / 100 Intake: IV 1400 / 1400 1200 / 1200 100 / 100 NS Inj 1,000 ML @ 100 mls/hr IV 1000 / 1000 1000 / 1000 .CONT .Q10H СЕРГЕЙ Rx#:[id number] Ofirmev Inj 1,000 mg In 100 ml 200 / 200 200 / 200 100 / 100 @ 400 mls/hr IV.SIG Q6H СЕРГЕЙ Rx# :[id number] Ancef Inj 1,000 MG In NS Inj 200 / 200 100 ML @ 200 mls/hr IV.SIG Q8H СЕРГЕЙ Rx#:[id number] Oral 240 / 240 Other: # Voids 2 Narrative: Abdomen soft, nontender, nondistended Results Procedures completed during hospitalization: Underwent lysis of abdominal adhesions. Labs on day of discharge: Labs from last 24 hours 04/15/18 04/15/18 04:41 04:41 WBC 4.9 RBC 3.29 L Hgb 10.3 L Hct 30.9 L MCV 94.0 MCH 31.2 MCHC 33.2 RDW 14.7 Plt Count 147 L MPV 9.1 Sodium 147 H Potassium 3.7 Chloride 111 H Carbon Dioxide 25.9 Anion Gap 10 BUN 7 Creatinine 0.52 Estimated GFR Greater than 89 Random Glucose 68 L Calcium 8.4 L Magnesium 1.9 Total Bilirubin 0.8 AST 28 ALT 30 Alkaline Phosphatase 84 Total Protein 5.7 L Albumin 2.8 L - Impressions ITS Impressions Abdomen/Pelvis CT 04/13/18 00:01 CONCLUSION: 1. Constellation of findings suggests either small bowel obstruction or localized ileus; the findings include: Dilated proximal small bowel, nondilated distal small bowel, mild ascites, and evidence of prior abdominal surgery. 2. Possible small pericardial effusion. Discharge Plan - Discharge Disposition Patient Disposition: Discharge Home - Discharge Condition Condition: Stable - Discharge Order Discharge Orders: Discharge Order (Routine); Ordered 04/15/18 Ordered By: Bhupinder Blake - Discharge Details Anticipated Discharge Date: 04/15/18 - Physicians Team Primary Care Provider: Paul Kent Attending Provider: Bhupinder Blake Other Providers: Osito Dumont MD
[2018-04-15 14:11] VITALS: BP 168/85; RESP 18; TEMP 97.8; O2SAT 96
--- NOTE | 2018-05-04 22:01 | MP ---
cc: Osito Dumont MD DATE OF OPERATION: 04/13/2018 PREOPERATIVE DIAGNOSIS: Bowel obstruction. POSTOPERATIVE DIAGNOSIS: Bowel obstruction. PROCEDURE PERFORMED: Laparoscopic lysis of adhesion. SURGEON: Osito Dumont MD ANESTHESIA: General endotracheal anesthesia. ESTIMATED BLOOD LOSS: Scant. FINDINGS: The patient had extensive adhesions in the lower abdomen, which is densely adherent to the abdominal wall and the pelvis. There was a point of obstruction identified and these adhesions were . All of her abdominal wall adhesions were not . SPECIMENS: None. COMPLICATIONS: None. DESCRIPTION OF PROCEDURE: The patient was brought to the operating room, placed on the operating table in supine position. Bilateral sequential inflation device placed on lower extremities. General anesthesia instituted. Araujo catheter placed. The abdomen was prepped and draped sterilely. The port in the left upper quadrant anesthetized with 0.25% Marcaine with epinephrine. Skin incision was made, 5 mm Optiview port placed under direct vision and pneumoperitoneum created. Under direct vision, a 5 mm left lower quadrant port, a 5 mm right upper quadrant port was placed. prior to placement of ports the peritoneum anesthetized with 0.5% Marcaine with epinephrine. The patient's abdominal cavity was inspected. There were extensive adhesions. There were interloop adhesions and abdominal wall adhesions of the small bowel in the pelvis. There was a point of obstruction identified, adhesions in this region were sharply . There were no more adhesions in the distal small bowel and in the pelvis for the possibility of possible missed serosal injury. The patient did not appear to have any obstruction at her jejunojejunostomy. No internal hernias identified. Once the bowel was freed, the operation was terminated. The CO2 released. All ports were removed. All skin incisions closed with 4-0 Monocryl. The abdominal wall was cleaned and a sterile dressing placed. The patient was awakened and taken to the recovery room. MD FAVIAN Boykin/PROSPER , 08:01 PM , 09:59 PM [facility]
== END 2018-04-15 14:57 | disposition home or self-care (01) ==
LOC: PHED 21:52 → PHEDA 04-13 04:31 → PH3 04-13 06:50 → HSDI 04-13 15:54 → N07 04-13 20:20
PROVIDERS: ADMIT Hospitalist; ATTEND Hospitalist
DX: K56.7 Ileus, unspecified; Z87.891 Personal history of nicotine dependence; E66.01 Morbid (severe) obesity due to excess calories; M19.90 Unspecified osteoarthritis, unspecified site; I31.3 Pericardial effusion (noninflammatory); K56.50 Intestinal adhesions [bands], unspecified as to partial versus complete obstruction; K21.9 Gastro-esophageal reflux disease without esophagitis; Z68.36 Body mass index [BMI] 36.0-36.9, adult; D64.9 Anemia, unspecified; G43.909 Migraine, unspecified, not intractable, without status migrainosus; K58.9 Irritable bowel syndrome, unspecified